=== PATIENT | male | born 1945 | race Caucasian/White ===

== ENCOUNTER 2022-06-10 11:17 | Inpatient (IN) | payer MEDICARE, OTHER, SELFPAY ==
[2022-06-10] VITALS (14 sets, daily range): BP systolic 105–143; BP diastolic 62–100; PULSE 70–150; RESP 16–18; TEMP 37; O2SAT 96–100; BMI 24.4
--- NOTE | ~2022-06-10 | US_ITS ---
EXAMINATION: US THYROID CLINICAL INFORMATION: thyrotoxicosis COMPARISON: None TECHNIQUE: Linear transducer grayscale and color Doppler examination with attention to the region of the thyroid. Examination is slightly limited due to positioning within the neck. FINDINGS: SIZE: Measurements of the thyroid lobes and nodules are given in sagittal, anteroposterior and transverse dimensions respectively. Right Thyroid Lobe: 4.3 x 1.8 x 1.2 cm, volume 4.9 mL. Parenchyma: The gland echotexture is heterogeneous. Thyroid vascularity is normal. Left Thyroid Lobe: 3.3 x 1.7 x 1.2 cm, volume 3.4 mL. Parenchyma: The gland echotexture is heterogeneous. Thyroid vascularity is normal. Isthmus: 0.2 cm in maximum AP dimension. Estimated total number of nodules greater than or equal to 1 cm: 1. [employer] Data [employer] nodules are described as follows: 1. Location: Right thyroid lobe interpolar region. Size: 1.6 x 1.5 x 1.2 cm, volume 1.5 mL. Nodule characteristics: Composition: Solid (2). Echogenicity: Isoechoic (1). Shape: Not taller than wide (0). Margins: Ill-defined (0). Echogenic Foci: None (0). ACR TI-RADS total points: 3 ACR TI-RADS category: 3 NODES: No lymphadenopathy is seen in the tissue surrounding the thyroid gland. US/US thyroid IMPRESSION: Normal-sized thyroid gland with slight parenchymal heterogenicity and normal vascularity. Single solid TI-RADS category 3 nodule in the right thyroid lobe. A follow-up ultrasound is advised per below. ACR TI-RADS RECOMMENDATION REFERENCE: Ultrasound-guided fine-needle aspiration, followup ultrasound, no further follow up. * TR1 (0 point) and TR 2 (2 points): No FNA or follow up * TR3 (3 points): FNA if more than or equal to 2.5 cm in maximum dimension, followup ultrasound in 1, 3 and 5 years if 1.5 to 2.4 cm in maximum dimension. * TR4 (4-6 points): FNA if more than or equal to 1.5 cm in maximum dimension, followup ultrasound in 1, 2, 3 and 5 years if 1 to 1.4 cm in maximum dimension. * TR5 (more than or equal to 7 points): FNA if more than or equal to 1 cm in maximum dimension, followup ultrasound every year for 5 years if 0.5 to 0.9 cm in maximum dimension. * TR3, TR4 or TR5 nodules that are below the size threshold for follow up receive no follow up.
--- NOTE | ~2022-06-10 | CT_ITS ---
EXAMINATION: CT HEAD AND CHEST. CLINICAL INFORMATION: Weakness. COMPARISON: None TECHNIQUE: Chest 2 views. 5 mm thin axial and reformatted 2 mm thin sagittal and coronal images of brain were obtained. DLP [id number]. FINDINGS: Chest: The lungs are hyperinflated but clear. There is a 9 mm nodule in the lingula and round nodule measuring 9 mm left upper lobe laterally overlying sixth posterior rib and left anterior fourth rib. The heart size and pulmonary vascularity is normal. No gross bony abnormality seen. Brain: There is no acute intra-axial, extra-axial bleed, masses or midline shift. There is no acute infarction evolution. There is no edema. There is diffuse periventricular hypodensity in both cerebral hemispheres without mass effect. The lateral ventricles are symmetrical but moderately enlarged. There is mild prominence of cortical sulci. No abnormality seen in the posterior fossa. Mild atherosclerotic changes of bilateral vertebral arteries are noted. Bone windows reveal normal aeration of bilateral parahilar nasal sinuses and mastoid air cells. No calvarial abnormality seen. No scalp soft tissue abnormality seen CT/CT head/brain wo con IMPRESSION: Hyperinflated lungs without acute process. Suspect 2 pulmonary nodules in the left hemithorax. Recommend CT chest correlation. No acute intracranial process seen. Age-related cerebral volume loss with chronic small vessel ischemic changes
--- NOTE | 2022-06-10 11:30 | ED.GENADULT ---
HPI - General Adult General Chief complaint: Weakness Stated complaint: weak/tired x's 1 week Time Seen by Provider: 06/10/22 11:29 Source: patient and EMS Mode of arrival: EMS Limitations: no limitations History of Present Illness HPI narrative: Patient is a 77 year old male presenting to the emergency department today feeling weak. Patient states that starting 3 weeks ago, he has had intermittent weakness. Patient states that he does not have a history of any cardiac problems and is not on any blood thinners. Patient denies any dizziness, lightheadedness, abdominal pain, nausea, vomiting, fever, chills, blurry vision, double vision, loss of vision, chest pain, difficulty breathing, shortness of breath, back pain, night sweats, pain with urination, increased urinary frequency, increased urinary urgency, blood in his urine or stool, syncope or a near syncopal episode, recent trauma or falls, bowel incontinence, bladder incontinence, bowel retention, bladder retention, or any other complaints at this time. Onset (ago): week(s) (3) Severity: mild Severity scale (1-10): 4 Relieving factors: none Exacerbating factors: none Associated symptoms: denies other symptoms Treatments prior to arrival: none Related Data Home Medications Medication Instructions Recorded Confirmed albuterol sulfate 90 mcg/actuation 2 puff PO QID PRN Wheezing 06/10/22 06/10/22 aerosol inhaler cholecalciferol (vitamin D3) 25 1 tab PO DAILY 06/10/22 06/10/22 mcg (1,000 unit) tablet fluticasone propionate 220 1 puff PO BID 06/10/22 06/10/22 mcg/actuation HFA aerosol inhaler (Flovent HFA) naproxen 500 mg tablet 1 tab PO BID PRN pain 06/10/22 06/10/22 omeprazole 20 mg capsule,delayed 1 cap PO BID 06/10/22 06/10/22 release tamsulosin 0.4 mg capsule 1 cap PO DAILY 06/10/22 06/10/22 tramadol 50 mg tablet 2 tab PO TID 06/10/22 06/10/22 Allergies Allergy/AdvReac Type Severity Reaction Status Date / Time No Known Allergies Allergy Verified 06/10/22 11:36 Review of Systems Constitutional: Constitutional: Reports no additional constitutional complaints, Denies chills, Denies fever(s), Denies night sweats and Reports weakness Eyes: Eyes: Reports no additional eye complaints, Denies blurry vision, Denies change in vision, Denies diplopia, Denies eye discharge, Denies loss of vision and Denies eye pain ENT: Denies dizziness Cardiovascular: Cardiovascular: Reports no additional cardiovascular complaints, Denies chest pain, Denies lightheadedness, Denies Loss of Consciousness and Denies dyspnea Respiratory: Respiratory: Reports no additional respiratory complaints and Denies dyspnea Gastrointestinal: Gastrointestinal: Reports no additional gastrointestinal complaints, Denies abdominal pain, Denies melena, Denies hematochezia, Denies change in bowel habits and Denies change in stool character Genitourinary: Genitourinary: Reports no additional male genitourinary complaints, Denies hematuria, Denies oliguria, Denies difficulty urinating, Denies dysuria, Denies urinary frequency, Denies urinary hesitancy, Denies urinary incontinence and Denies urinary urgency Musculoskeletal: Musculoskeletal: Reports no additional musculoskeletal complaints, Denies numbness and Denies tingling Neurologic: Denies dizziness, Denies loss of vision, Denies numbness, Denies tingling and Reports weakness Psychiatric: Psychiatric: Reports no additional psychiatric complaints Endocrine: Endocrine: Reports no additional endocrine complaints Hematologic/Lymphatic: Hematologic/Lymphatic: Reports no additional hematologic/lymphatic complaints Allergic/Immunologic: Allergic/Immunologic: Reports no additional allergic/immunologic complaints [facility] Past Medical History Attestation statement: The following information was validated with the patient. Source: old records reviewed Medical History COPD (chronic obstructive pulmonary disease) GERD (gastroesophageal reflux disease) Social History Social History Patient Tobacco Use Status: Former Tobacco user Use of substances other than those prescribed or required for medical reasons: Yes Substance Use Type: Marijuana Advance Directives: No Advance Directives Information Provided: Yes Physical Exam ED Vital Signs: Vital Signs - 24 hr 06/10/22 11:34 06/10/22 11:45 06/10/22 11:55 Temperature 98.6 F Pulse Rate 136 H 150 H 135 H Respiratory Rate 18 18 16 Blood Pressure 127/89 143/100 H 124/83 Pulse Oximetry 97 Oxygen Delivery Method Room Air 06/10/22 12:12 06/10/22 12:16 06/10/22 12:39 Temperature Pulse Rate 139 H 133 H 130 H Respiratory Rate 18 Blood Pressure 140/77 H 105/71 129/92 H Pulse Oximetry Oxygen Delivery Method 06/10/22 13:09 06/10/22 13:19 06/10/22 15:20 Temperature Pulse Rate 140 H 115 H 138 H Respiratory Rate 18 18 Blood Pressure 119/85 120/76 140/78 H Pulse Oximetry 97 97 Oxygen Delivery Method Room Air Room Air 06/10/22 16:04 06/10/22 16:18 06/10/22 16:56 Temperature Pulse Rate 120 H 126 H 110 H Respiratory Rate 18 18 Blood Pressure 108/84 130/72 109/80 Pulse Oximetry 98 97 Oxygen Delivery Method Room Air Room Air BMI result Body Mass Index 24.4 Const General: cooperative, no acute distress, alert and awake Nutritional Appearance: well nourished Orientation/consciousness: patient oriented x3 Limitations: no limitations HENMT Head: Yes normal to inspection and Yes atraumatic Ears: hearing grossly normal bilaterally and external ears normal General nose exam: Normal external nose present, no nasal discharge noted and no epistaxis Face and sinus: Yes normal facial exam, No abrasion and No laceration Mouth: Normal oral and palatal mucosa present, no drooling and no muffled voice Eyes General: appearance normal, both eyes and all related structures Periorbital: periorbital findings normal Eyelids: Yes eyelids normal Conjunctivae: conjunctivae normal Pupils: Equal, round and reactive pupils present EOM: EOMs intact bilaterally Neck Neck: Yes normal visual inspection, Yes full ROM and Yes no lymphadenopathy Chest Chest palpation & inspection: normal inspection of the chest Resp Effort & Inspection: normal respiratory effort and able to speak in complete sentences Auscultation: clear to auscultation bilaterally Cardio Rate: tachycardic Rhythm: abnormal rhythm irregularly irregular GI Inspection: Yes normal to inspection Palpation (GI): Soft to palpation, not firm, nontender and no guarding Neuro General: patient oriented x3 and moves all extremities Cranial nerves: Yes Equal, round and reactive pupils present Cognition (Neuro): normal cognition Motor exam (neuro): 5/5 motor strength present throughout Sensory Exam: Normal double simultaneous stimulation for sensation Coordination: [id number] test normal Extrem General: Yes normal to inspection, Yes full ROM and Yes capillary refill normal Psych Appearance: grossly normal Mental Status: mental status grossly normal Affect: normal affect Attitude: cooperative Thought process: Normal thought process present Thought content: Normal thought content present Insight: Good insight present (Psych) Medical Decision Making MDM Narrative Medical decision making narrative: Patient is a 77 year old male presenting to the emergency department today feeling unwell. Patient's physical exam showed a new onset atrial fibrillation with RVR. Patient's blood work showed a slightly elevated WBC count at 13.4 however, I believe this to be secondary to a stress reaction and not an infectious process. Patient's BNP was 200. Patient's initial troponin was 37.9 and his repeat was 32.2. Patient's urine showed no acute process. Patient's EKG showed atrial fibrillation with RVR. Patient's chest x-ray and head CT showed no acute process. Patient was given multiple doses of PO and IV Lopressor as well as IV Cardizem. Patient's rate was controlled after the Cardizem drip was started. I explained my physical exam findings as well as all test results to the patient. I answered all questions asked by the patient. I called and spoke to Dr. Mendoza who agreed to hospital admission. This patient was not septic and at no point did I have clinical concern of sepsis. Differential Diagnosis Differential Diagnosis: Atrial fibrillation with RVR Medical Records Medical records reviewed: Yes I reviewed the patient's medical records. Lab Data Lab results reviewed: Yes I reviewed the patient's lab results. Result diagrams: 06/10/22 11:45 06/10/22 11:45 Labs: Lab Results 06/10/22 06/10/22 06/10/22 Range/Units 11:45 11:45 11:45 WBC 13.4 H (4.8-10.8) X10*3/uL RBC 5.19 (4.60-5.80) X10*6/uL Hgb 15.2 (14.0-18.0) g/dl Hct 44.1 (42.0-52.0) % MCV 85.0 (80.0-98.0) fL MCH 29.3 (27.0-33.0) pg MCHC 34.5 (31.0-36.0) g/dl RDW 13.4 (11.0-16.0) % Plt Count 430 H (160-400) X10*3/uL MPV 10.8 (9.4-12.4) fL Immature Gran % (Auto) 0.6 H (0.0-0.4) % Neut % (Auto) 84.1 H (45-73) % Lymph % (Auto) 8.6 L (20-40) % [place] % (Auto) 6.4 (2-11) % Eos % (Auto) 0.1 (0-4) % Baso % (Auto) 0.2 (0-2) % Lymph # (Auto) 1.2 (1.2-4.9) X10*3/uL [place] # (Auto) 0.9 (0.1-1.2) X10*3/uL Eos # (Auto) 0.0 (0.0-0.4) X10*3/uL Baso # (Auto) 0.0 (0.0-0.2) X10*3/uL Abs Immat Gran (auto) 0.08 H (0.00-0.03) X10*3/uL Absolute Neuts (auto) 11.2 H (2.0-8.3) x10*3/uL Absolute Nucleated RBC 0.000 (0.0-0.012) X10*3/uL Nucleated RBC % (auto) 0.0 (0.0-0.2) /100WBC PT (10.0-13.1) SEC INR (0.9-1.1) APTT (26.0-36.4) SEC Sodium 140 (135-145) mmol/L Potassium 4.3 (3.3-5.1) mmol/L Chloride 101 (96-108) mmol/L Carbon Dioxide 23 (22-29) mmol/L Anion Gap 20 (12-20) BUN 33 H (9-16) mg/dL Creatinine 0.97 (0.5-1.4) mg/dL Estim Creat Clear Calc 63.7 Estimated GFR > 60 Random Glucose 156 H (60-115) mg/dL Lactic Acid (0.5-2.0) mmol/L Calcium 10.2 (8.4-10.2) mg/dL Magnesium 1.9 (1.6-2.6) mg/dL Total Bilirubin 1.3 H (0.0-1.0) mg/dL AST 22 (5-37) U/L ALT 29 (0-40) U/L Alkaline Phosphatase 82 (39-117) U/L Troponin I High Sens 37.9 H (<3.5-35.0) ng/L B-Natriuretic Peptide (<100) pg/mL Total Protein 7.3 (6.5-8.0) g/dL Albumin 4.2 (3.5-5.0) g/dL TSH < 0.01 L (0.32-4.0) uIU/mL Urine Color Urine Appearance Urine pH (5.0-8.0) Ur Specific [place] (1.005-1.025) Urine Protein (NEG-TRACE) MG/DL Urine Glucose (UA) (NEG) MG/DL Urine Ketones (NEG) MG/DL Urine Blood (NEG) Urine Nitrite (NEG) Ur Leukocyte Esterase (NEG) Urine RBC (0) /HPF Urine WBC (0-4) /HPF Ur Squamous Epith Cells /LPF Urine Bacteria /LPF COVID-19 ([facility]) (Negative) COVID-19 Clin Com Influenza Type A ([facility]) (Negative) Influenza Type B ([facility]) (Negative) Influenza A & B Note 06/10/22 06/10/22 06/10/22 Range/Units 11:46 11:46 12:01 WBC (4.8-10.8) X10*3/uL RBC (4.60-5.80) X10*6/uL Hgb (14.0-18.0) g/dl Hct (42.0-52.0) % MCV (80.0-98.0) fL MCH (27.0-33.0) pg MCHC (31.0-36.0) g/dl RDW (11.0-16.0) % Plt Count (160-400) X10*3/uL MPV (9.4-12.4) fL Immature Gran % (Auto) (0.0-0.4) % Neut % (Auto) (45-73) % Lymph % (Auto) (20-40) % [place] % (Auto) (2-11) % Eos % (Auto) (0-4) % Baso % (Auto) (0-2) % Lymph # (Auto) (1.2-4.9) X10*3/uL [place] # (Auto) (0.1-1.2) X10*3/uL Eos # (Auto) (0.0-0.4) X10*3/uL Baso # (Auto) (0.0-0.2) X10*3/uL Abs Immat Gran (auto) (0.00-0.03) X10*3/uL Absolute Neuts (auto) (2.0-8.3) x10*3/uL Absolute Nucleated RBC (0.0-0.012) X10*3/uL Nucleated RBC % (auto) (0.0-0.2) /100WBC PT (10.0-13.1) SEC INR (0.9-1.1) APTT (26.0-36.4) SEC Sodium (135-145) mmol/L Potassium (3.3-5.1) mmol/L Chloride (96-108) mmol/L Carbon Dioxide (22-29) mmol/L Anion Gap (12-20) BUN (9-16) mg/dL Creatinine (0.5-1.4) mg/dL Estim Creat Clear Calc Estimated GFR Random Glucose (60-115) mg/dL Lactic Acid 1.9 (0.5-2.0) mmol/L Calcium (8.4-10.2) mg/dL Magnesium (1.6-2.6) mg/dL Total Bilirubin (0.0-1.0) mg/dL AST (5-37) U/L ALT (0-40) U/L Alkaline Phosphatase (39-117) U/L Troponin I High Sens (<3.5-35.0) ng/L B-Natriuretic Peptide (<100) pg/mL Total Protein (6.5-8.0) g/dL Albumin (3.5-5.0) g/dL TSH (0.32-4.0) uIU/mL Urine Color Urine Appearance Urine pH (5.0-8.0) Ur Specific [place] (1.005-1.025) Urine Protein (NEG-TRACE) MG/DL Urine Glucose (UA) (NEG) MG/DL Urine Ketones (NEG) MG/DL Urine Blood (NEG) Urine Nitrite (NEG) Ur Leukocyte Esterase (NEG) Urine RBC (0) /HPF Urine WBC (0-4) /HPF Ur Squamous Epith Cells /LPF Urine Bacteria /LPF COVID-19 ([facility]) Negative (Negative) COVID-19 Clin Com See Note Influenza Type A ([facility]) Negative (Negative) Influenza Type B ([facility]) Negative (Negative) Influenza A & B Note See Note 06/10/22 06/10/22 06/10/22 Range/Units 12:01 12:10 14:00 WBC (4.8-10.8) X10*3/uL RBC (4.60-5.80) X10*6/uL Hgb (14.0-18.0) g/dl Hct (42.0-52.0) % MCV (80.0-98.0) fL MCH (27.0-33.0) pg MCHC (31.0-36.0) g/dl RDW (11.0-16.0) % Plt Count (160-400) X10*3/uL MPV (9.4-12.4) fL Immature Gran % (Auto) (0.0-0.4) % Neut % (Auto) (45-73) % Lymph % (Auto) (20-40) % [place] % (Auto) (2-11) % Eos % (Auto) (0-4) % Baso % (Auto) (0-2) % Lymph # (Auto) (1.2-4.9) X10*3/uL [place] # (Auto) (0.1-1.2) X10*3/uL Eos # (Auto) (0.0-0.4) X10*3/uL Baso # (Auto) (0.0-0.2) X10*3/uL Abs Immat Gran (auto) (0.00-0.03) X10*3/uL Absolute Neuts (auto) (2.0-8.3) x10*3/uL Absolute Nucleated RBC (0.0-0.012) X10*3/uL Nucleated RBC % (auto) (0.0-0.2) /100WBC PT 16.2 H (10.0-13.1) SEC INR 1.4 H (0.9-1.1) APTT 25.2 L (26.0-36.4) SEC Sodium (135-145) mmol/L Potassium (3.3-5.1) mmol/L Chloride (96-108) mmol/L Carbon Dioxide (22-29) mmol/L Anion Gap (12-20) BUN (9-16) mg/dL Creatinine (0.5-1.4) mg/dL Estim Creat Clear Calc Estimated GFR Random Glucose (60-115) mg/dL Lactic Acid (0.5-2.0) mmol/L Calcium (8.4-10.2) mg/dL Magnesium (1.6-2.6) mg/dL Total Bilirubin (0.0-1.0) mg/dL AST (5-37) U/L ALT (0-40) U/L Alkaline Phosphatase (39-117) U/L Troponin I High Sens 32.2 (<3.5-35.0) ng/L B-Natriuretic Peptide 200 H (<100) pg/mL Total Protein (6.5-8.0) g/dL Albumin (3.5-5.0) g/dL TSH (0.32-4.0) uIU/mL Urine Color Urine Appearance Urine pH (5.0-8.0) Ur Specific [place] (1.005-1.025) Urine Protein (NEG-TRACE) MG/DL Urine Glucose (UA) (NEG) MG/DL Urine Ketones (NEG) MG/DL Urine Blood (NEG) Urine Nitrite (NEG) Ur Leukocyte Esterase (NEG) Urine RBC (0) /HPF Urine WBC (0-4) /HPF Ur Squamous Epith Cells /LPF Urine Bacteria /LPF COVID-19 ([facility]) (Negative) COVID-19 Clin Com Influenza Type A ([facility]) (Negative) Influenza Type B ([facility]) (Negative) Influenza A & B Note 06/10/22 Range/Units 15:05 WBC (4.8-10.8) X10*3/uL RBC (4.60-5.80) X10*6/uL Hgb (14.0-18.0) g/dl Hct (42.0-52.0) % MCV (80.0-98.0) fL MCH (27.0-33.0) pg MCHC (31.0-36.0) g/dl RDW (11.0-16.0) % Plt Count (160-400) X10*3/uL MPV (9.4-12.4) fL Immature Gran % (Auto) (0.0-0.4) % Neut % (Auto) (45-73) % Lymph % (Auto) (20-40) % [place] % (Auto) (2-11) % Eos % (Auto) (0-4) % Baso % (Auto) (0-2) % Lymph # (Auto) (1.2-4.9) X10*3/uL [place] # (Auto) (0.1-1.2) X10*3/uL Eos # (Auto) (0.0-0.4) X10*3/uL Baso # (Auto) (0.0-0.2) X10*3/uL Abs Immat Gran (auto) (0.00-0.03) X10*3/uL Absolute Neuts (auto) (2.0-8.3) x10*3/uL Absolute Nucleated RBC (0.0-0.012) X10*3/uL Nucleated RBC % (auto) (0.0-0.2) /100WBC PT (10.0-13.1) SEC INR (0.9-1.1) APTT (26.0-36.4) SEC Sodium (135-145) mmol/L Potassium (3.3-5.1) mmol/L Chloride (96-108) mmol/L Carbon Dioxide (22-29) mmol/L Anion Gap (12-20) BUN (9-16) mg/dL Creatinine (0.5-1.4) mg/dL Estim Creat Clear Calc Estimated GFR Random Glucose (60-115) mg/dL Lactic Acid (0.5-2.0) mmol/L Calcium (8.4-10.2) mg/dL Magnesium (1.6-2.6) mg/dL Total Bilirubin (0.0-1.0) mg/dL AST (5-37) U/L ALT (0-40) U/L Alkaline Phosphatase (39-117) U/L Troponin I High Sens (<3.5-35.0) ng/L B-Natriuretic Peptide (<100) pg/mL Total Protein (6.5-8.0) g/dL Albumin (3.5-5.0) g/dL TSH (0.32-4.0) uIU/mL Urine Color YELLOW Urine Appearance CLEAR Urine pH 6.0 (5.0-8.0) Ur Specific [place] >= 1.030 H (1.005-1.025) Urine Protein 1+ H (NEG-TRACE) MG/DL Urine Glucose (UA) NEG (NEG) MG/DL Urine Ketones 40 (NEG) MG/DL Urine Blood NEG (NEG) Urine Nitrite NEG (NEG) Ur Leukocyte Esterase NEG (NEG) Urine RBC 0 (0) /HPF Urine WBC 0 (0-4) /HPF Ur Squamous Epith Cells NONE /LPF Urine Bacteria 1+ /LPF COVID-19 ([facility]) (Negative) COVID-19 Clin Com Influenza Type A ([facility]) (Negative) Influenza Type B ([facility]) (Negative) Influenza A & B Note Imaging Data CT Head and Chest x-ray: Attestation: I personally reviewed and interpreted this imaging study as follows: My impression: No acute process. Radiologist's impression: EXAMINATION: CT HEAD AND CHEST. CLINICAL INFORMATION: Weakness.? COMPARISON: None? TECHNIQUE: Chest 2 views. 5 mm thin axial and reformatted 2 mm thin sagittal and coronal images of brain were obtained. DLP 651.? FINDINGS: Chest: The lungs are hyperinflated but clear. There is a 9 mm nodule in the lingula and round nodule measuring 9 mm left upper lobe laterally overlying sixth posterior rib and left anterior fourth rib. The heart size and pulmonary vascularity is normal. No gross bony abnormality seen. Brain: There is no acute intra-axial, extra-axial bleed, masses or midline shift. There is no acute infarction evolution. There is no edema. There is diffuse periventricular hypodensity in both cerebral hemispheres without mass effect. The lateral ventricles are symmetrical but moderately enlarged. There is mild prominence of cortical sulci. No abnormality seen in the posterior fossa. Mild atherosclerotic changes of bilateral vertebral arteries are noted. Bone windows reveal normal aeration of bilateral parahilar nasal sinuses and mastoid air cells. No calvarial abnormality seen. No scalp soft tissue abnormality seen XR/XR chest 2V IMPRESSION: Hyperinflated lungs without acute process. Suspect 2 pulmonary nodules in the left hemithorax. Recommend CT chest correlation. ? No acute intracranial process seen. ? Age-related cerebral volume loss with chronic small vessel ischemic changes Dictated By: Asif Andre MD Signed By: Electronically signed by Asif Andre MD 06/10/22 1428 ECG Data Attestation: I personally reviewed and interpreted this ECG as follows: Prior ECG tracings: available for review Interpretation: Vent. Rate: 173 BPM ? ? Atrial Rate: 000 BPM P-R Int: 000 ms? QRS Dur: 076 ms QT Int: 246 ms ? ? ? P-R-T Axes: 000 -19 -14 degrees QTc Int: 417 ms ? 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 rate has increased BY? 92 BPM Nonspecific T wave abnormality, worse in Inferior leads DD/ [id number] Critical Care Time Critical Care Time Critical Care Time: Yes Total Critical Care Time: 45 Attestation: I spent 45 minutes of Critical Care Time with this patient. This does not include time spent on separately reported billable procedures. Discharge Plan Discharge Clinical Impression: New onset atrial fibrillation, Atrial fibrillation with RVR Patient Disposition: Admitted As Inpatient
--- NOTE | 2022-06-10 11:34 | ECG_ITS ---
Test Reason : AFIB Blood Pressure : / mmHG Vent. 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 rate has increased BY 92 BPM Nonspecific T wave abnormality, worse in Inferior leads Referred By: Rosie Pritchett Electronically Signed By:SAMARA MEDEIROS
[2022-06-10] MEDS: Metoprolol Tartrate 5 MG/5 ML VIAL IVPUSH ×3 (11:41→12:11)
[2022-06-10 11:52] LABS: MANUAL DIFF FLAG NO
[2022-06-10 11:53] LABS: Basophils Percent Auto 0.2 % (0-2); Eosinophils Percent Auto 0.1 % (0-4); Hematocrit 44.1 % (42.0-52.0); Hemoglobin 15.2 g/dl (14.0-18.0); Imm Gran Abs Auto 0.08 X10*3/uL (0.00-0.03); Imm Gran Pct Auto 0.6 % (0.0-0.4); Lymphocytes Absolute Auto 1.2 X10*3/uL (1.2-4.9); Lymphocytes Percent Auto 8.6 % (20-40); Mean Corpuscular HGB Conc 34.5 g/dl (31.0-36.0); Mean Corpuscular Hemoglobin 29.3 pg (27.0-33.0); Mean Platelet Volume 10.8 fL (9.4-12.4); Monocytes Absolute Auto 0.9 X10*3/uL (0.1-1.2); Monocytes Percent Auto 6.4 % (2-11); Neutrophils Absolute Auto 11.2 x10*3/uL (2.0-8.3); Neutrophils Percent Auto 84.1 % (45-73); Platelet Count 430 X10*3/uL (160-400); Red Blood Count 5.19 X10*6/uL (4.60-5.80); Red Cell Distribution Width 13.4 % (11.0-16.0); White Blood Count 13.4 X10*3/uL (4.8-10.8)
[2022-06-10 12:08] LABS: Alanine Aminotransferase 29 U/L (0-40); Albumin Level 4.2 g/dL (3.5-5.0); Alkaline Phosphatase 82 U/L (39-117); Anion Gap 20 (12-20); Aspartate Amino Transferase 22 U/L (5-37); Bilirubin Total 1.3 mg/dL (0.0-1.0); Blood Urea Nitrogen 33 mg/dL (9-16); Calcium 10.2 mg/dL (8.4-10.2); Carbon Dioxide 23 mmol/L (22-29); Chloride 101 mmol/L (96-108); Creatinine Clr Calc Pharmacy 63.7; Estimated Glomerular Filt Rate > 60; Glucose Random 156 mg/dL (60-115); Magnesium 1.9 mg/dL (1.6-2.6); Potassium 4.3 mmol/L (3.3-5.1); Sodium 140 mmol/L (135-145); Total Protein 7.3 g/dL (6.5-8.0)
[2022-06-10 12:12] LABS: Troponin-I High Sensitivity 37.9 ng/L (<3.5-35.0)
[2022-06-10 12:15] LABS: COVID-19 Test Negative (Negative); IDNOW Serial# 16C4AD1C; Influenza A Negative (Negative); Influenza B2 Negative (Negative)
[2022-06-10 12:16] LABS: Lactic Acid 1.9 mmol/L (0.5-2.0)
[2022-06-10] MEDS: Metoprolol Tartrate 12.5 MG HALFTAB PO ×2 (12:21→15:01)
[2022-06-10 12:22] LABS: INTERNATIONAL NORM RATIO 1.4 (0.9-1.1); Prothrombin Time 16.2 SEC (10.0-13.1)
[2022-06-10 12:25] LABS: Partial Thromboplastin Time 25.2 SEC (26.0-36.4)
[2022-06-10 12:27] LABS: B Type Natriuretic Peptide 200 pg/mL (<100)
[2022-06-10] MEDS: dilTIAZem HCL 50 MG/10 ML VIAL 10 MG IVPUSH (13:08)
--- NOTE | 2022-06-10 13:14 | PC.NURSE ---
Pt presented to ED with reports of general weakness x 2-3 weeks intermittently. Placed on monitor on arrival and HR noted to be irregular and 190s. Rosie JONES and Dr Mederos to bedside. EKG obtained and Metoprolol given as charted in [facility]. Pt trended down to 140s, BP remains stable. Cardizem now given in effort to control HR. Pt denies other associated sx. Reports chronic low back pain.
[2022-06-10 14:28] LABS: Troponin-I High Sensitivity 32.2 ng/L (<3.5-35.0)
--- NOTE | 2022-06-10 14:46 | PC.NURSE ---
ASSISTED PT TO USE URINAL AT BEDSIDE. HR ELEVATED TO LOW 150'S UPON STANDING AND GETTING BACK INTO BED. PROVIDER MADE AWARE.
[2022-06-10] MEDS: Furosemide 20 MG/2 ML VIAL IVPUSH (15:05)
[2022-06-10] MEDS: dilTIAZem HCL 125 MG in 0.9 % Sodium Chloride 100 ML 10 MG IVCONT (15:12)
[2022-06-10 15:13] LABS: Appearance Urine CLEAR; Color Urine YELLOW; Glucose Urine UA NEG (NEG); Leukocyte Esterase Urine NEG (NEG); Nitrite Urine NEG (NEG); Specific Gravity - Urine >= 1.030 (1.005-1.025); UACC Culture Trigger NO; Urine Blood NEG (NEG); Urine Ketones 40 MG/DL (NEG); Urine Protein 1+ MG/DL (NEG-TRACE)
--- NOTE | 2022-06-10 15:20 | PC.NURSE ---
Cardizem gtt started at 10mg/hr per order. HR 130-150, 150 with activity. Pt needs frequent reminders
[2022-06-10] MEDS: 0.9 % Sodium Chloride 500 ML 150 ML IVCONT (15:22)
[2022-06-10 15:24] LABS: Bacteria Urine 1+ /LPF; RBC Urine 0 /HPF (0); WBC Urine 0 /HPF (0-4)
--- NOTE | 2022-06-10 15:30 | PC.NURSE ---
Lasix given, external cath placed as pt states he is unable to void in bed, HR increases with any activity.
--- NOTE | 2022-06-10 17:08 | PHA.MEDREC ---
Pharmacy Consult ? Medication Reconciliation Pharmacy has completed the medication reconciliation. Pt poor historian, agreeable to list I got from recent claim history. Did state he doesn't know the last time he took his meds but it's been a while.
--- NOTE | 2022-06-10 17:31 | P.HPHOSP_ITS ---
History of Present Illness Date of Service: 06/10/22 Chief Complaint: Weakness A 77 years old male with PMH of back pain, BPH, GERD, COPD who presents to the hospital complaining of weakness for the last week or so. The patient reported that he has not been feeling his self for the last week or longer as he became more tired and having no energy. He was able to take care of his basic needs with for the last 2 days his weakness became too much as he was unable to leave his bed that often. He was brought to the emergency by his daughter. Denies any fever, chills, headache, double vision, chest pain, palpi tation, abdominal pain, nausea, vomiting, change in bowel habit or urinary symptoms. In the emergency he was found to have new onset atrial fibrillation with rapid ventricular response. Started on IV Cardizem drip as metoprolol IV pushes did not help controlling the heart rate. Will be admitted for further evaluation and treatment. Review of Systems Review of Systems: No fever, chills but has generalized weakness No chest pain, reports feeling his heart racing now No shortness of breath or coughing No abdominal pain, nausea or vomiting No urinary symptoms No any rash or wounds PMFSH Medical History COPD (chronic obstructive pulmonary disease) GERD (gastroesophageal reflux disease) Social History Patient Tobacco Use Status: Former Tobacco user Use of substances other than those prescribed or required for medical reasons: Yes Substance Use Type: Marijuana Advance Directives: No Advance Directives Information Provided: Yes Meds Allergies Allergy/AdvReac Type Severity Reaction Status Date / Time No Known Allergies Allergy Verified 06/10/22 11:36 Active Medications: Current Medications Diltiazem HCl 125 mg/ Sodium (Chloride) 125 mls @ 0 mls/hr IVCONT .Q0M ANGELA; Protocol Last Titration: 06/10/22 16:17 Dose: 15 mg/hr, 15 mls/hr Pharmacy Consult (Consult Rx Perform Med Rec) 1 each MISCELLANE ONCE PRN PRN Reason: Consult order Home Medications Medication Instructions Recorded Confirmed Last Taken Type albuterol sulfate 90 mcg/actuation 2 puff PO QID PRN Wheezing 06/10/22 06/10/22 Unknown History aerosol inhaler cholecalciferol (vitamin D3) 25 1 tab PO DAILY 06/10/22 06/10/22 Unknown History mcg (1,000 unit) tablet fluticasone propionate 220 1 puff PO BID 06/10/22 06/10/22 Unknown History mcg/actuation HFA aerosol inhaler (Flovent HFA) naproxen 500 mg tablet 1 tab PO BID PRN pain 06/10/22 06/10/22 Unknown History omeprazole 20 mg capsule,delayed 1 cap PO BID 06/10/22 06/10/22 Unknown History release tamsulosin 0.4 mg capsule 1 cap PO DAILY 06/10/22 06/10/22 Unknown History tramadol 50 mg tablet 2 tab PO TID 06/10/22 06/10/22 Unknown History Physical Exam Vital Signs and Narrative: Vital Signs: Last Vital Signs Temp 98.6 F 06/10/22 11:34 Pulse 110 H 06/10/22 16:56 Resp 18 06/10/22 16:18 BP 109/80 06/10/22 16:56 Pulse Ox 97 06/10/22 16:18 O2 Del Method 06/10/22 16:18 BMI result Body Mass Index 24.4 Const: Other: Constitutional : Alert, oriented, not in distress Neck : Normal inspection, Supple Cardiovascular : Irregular irregular, no JVP, no lower extremity edema, t achycardia Respiratory : fair bilateral air entry, no crackles, wheezes or rhonchi Gastrointestinal: soft, lax, Normal bowel sounds, Non tender Skin : Warm, Dry Neurological : Alert & oriented x3, No focal deficit , CN 2-12 within normal Results Labs CBC and Chem 7: 06/10/22 11:45 06/10/22 11:45 Labs: Laboratory Results - last 24 hr 06/10/22 06/10/22 06/10/22 11:45 11:45 11:46 MCV 85.0 MCH 29.3 MCHC 34.5 RDW 13.4 Plt Count 430 H MPV 10.8 Immature Gran % (Auto) 0.6 H Neut % (Auto) 84.1 H Lymph % (Auto) 8.6 L [place] % (Auto) 6.4 Eos % (Auto) 0.1 Baso % (Auto) 0.2 Lymph # (Auto) 1.2 [place] # (Auto) 0.9 Eos # (Auto) 0.0 Baso # (Auto) 0.0 Abs Immat Gran (auto) 0.08 H Absolute Neuts (auto) 11.2 H Absolute Nucleated RBC 0.000 Nucleated RBC % (auto) 0.0 PT INR APTT Anion Gap 20 Estim Creat Clear Calc 63.7 Estimated GFR > 60 Random Glucose 156 H Lactic Acid Calcium 10.2 Magnesium 1.9 Total Bilirubin 1.3 H AST 22 ALT 29 Alkaline Phosphatase 82 B-Natriuretic Peptide Total Protein 7.3 Albumin 4.2 Urine Color Urine Appearance Urine pH Ur Specific [place] Urine Protein Urine Glucose (UA) Urine Ketones Urine Blood Urine Nitrite Ur Leukocyte Esterase Urine RBC Urine WBC Ur Squamous Epith Cells Urine Bacteria COVID-19 ([facility]) COVID-19 Clin Com Influenza Type A ([facility]) Negative Influenza Type B ([facility]KY) Negative Influenza A & B Note See Note 06/10/22 06/10/22 06/10/22 11:46 12:01 12:01 MCV MCH MCHC RDW Plt Count MPV Immature Gran % (Auto) Neut % (Auto) Lymph % (Auto) [place] % (Auto) Eos % (Auto) Baso % (Auto) Lymph # (Auto) [place] # (Auto) Eos # (Auto) Baso # (Auto) Abs Immat Gran (auto) Absolute Neuts (auto) Absolute Nucleated RBC Nucleated RBC % (auto) PT INR APTT Anion Gap Estim Creat Clear Calc Estimated GFR Random Glucose Lactic Acid 1.9 Calcium Magnesium Total Bilirubin AST ALT Alkaline Phosphatase B-Natriuretic Peptide 200 H Total Protein Albumin Urine Color Urine Appearance Urine pH Ur Specific [place] Urine Protein Urine Glucose (UA) Urine Ketones Urine Blood Urine Nitrite Ur Leukocyte Esterase Urine RBC Urine WBC Ur Squamous Epith Cells Urine Bacteria COVID-19 ([facility]) Negative COVID-19 Clin Com See Note Influenza Type A ([facility]) Influenza Type B ([facility]) Influenza A & B Note 06/10/22 06/10/22 12:10 15:05 MCV MCH MCHC RDW Plt Count MPV Immature Gran % (Auto) Neut % (Auto) Lymph % (Auto) [place] % (Auto) Eos % (Auto) Baso % (Auto) Lymph # (Auto) [place] # (Auto) Eos # (Auto) Baso # (Auto) Abs Immat Gran (auto) Absolute Neuts (auto) Absolute Nucleated RBC Nucleated RBC % (auto) PT 16.2 H INR 1.4 H APTT 25.2 L Anion Gap Estim Creat Clear Calc Estimated GFR Random Glucose Lactic Acid Calcium Magnesium Total Bilirubin AST ALT Alkaline Phosphatase B-Natriuretic Peptide Total Protein Albumin Urine Color YELLOW Urine Appearance CLEAR Urine pH 6.0 Ur Specific [place] >= 1.030 H Urine Protein 1+ H Urine Glucose (UA) NEG Urine Ketones 40 Urine Blood NEG Urine Nitrite NEG Ur Leukocyte Esterase NEG Urine RBC 0 Urine WBC 0 Ur Squamous Epith Cells NONE Urine Bacteria 1+ COVID-19 ([facility]) COVID-19 Clin Com Influenza Type A ([facility]) Influenza Type B ([facility]) Influenza A & B Note Imaging Radiologist's Impressions: Impressions Chest X-Ray 06/10/22 13:55 IMPRESSION: Hyperinflated lungs without acute process. Suspect 2 pulmonary nodules in the left hemithorax. Recommend CT chest correlation. No acute intracranial process seen. Age-related cerebral volume loss with chronic small vessel ischemic changes Head CT 06/10/22 14:02 IMPRESSION: Hyperinflated lungs without acute process. Suspect 2 pulmonary nodules in the left hemithorax. Recommend CT chest correlation. No acute intracranial process seen. Age-related cerebral volume loss with chronic small vessel ischemic changes Assessment and Plan (1) New onset atrial fibrillation: Status: Acute (2) Lung nodule: Status: Acute Plan A 77 years old male with PMH of back pain, BPH, GERD, COPD who presents to the hospital complaining of weakness for the last week or so. New muscle atrial fibrillation with RVR Noticed on EKG Continue Cardizem drip Get cardiology evaluation To do an echo Eliquis as blood thinner, discussed possible side effects and benefits with the patient and he understood Keep on telemetry Elevated BNP to 200, no clear evidence of heart failure at this point, to monitor To give IV magnesium to keep mg level above 2 Lung nodule Two nodules Noticed on CXR to be followed as outpatient with CT scan GERD next Lyme continue omeprazole BPH Tamsulosin DVT PPX Eliquis The patient will likely need 2. Overnight hospital stay for evaluation and treatment of a new onset AFib with RVR to prevent possible decompensation into heart failure. Quality Stroke Does the patient have a stroke diagnosis?: No VTE Prior VTE?: No VTE Risk Level:: Medical - moderate - high VTE Device Contraindication: Treatment Not Indicated VTE Drug Contraindication: N/A - Med Ordered
--- NOTE | 2022-06-10 17:45 | PC.NURSE ---
NS dscontinued Daughter Sandrita [phone] called and updated on plan for admission. Spoke about home services set for pt on d/c from hospital. Pt needs reminds, confused at times and needs reorientation to surroundings. Cardizem remains at 15mg/hr, HR 110s. External cath replaced, dark yellow urine in drainage bag noted.
[2022-06-10 18:08] LABS: Thyroid Stimulating Hormone < 0.01 uIU/mL (0.32-4.0)
--- NOTE | 2022-06-10 18:15 | PC.NURSE ---
Both IVs pulled out and external cath by pt. New IV start to left forearm 18g.
[2022-06-10] MEDS: Magnesium Sulfate/D5W 1 GM/100 ML PIGGYBACK IV (18:16)
[2022-06-10] MEDS: Apixaban 5 MG TABLET PO (20:01)
[2022-06-10] MEDS: traMADoL HCL 50 MG TABLET 100 MG PO (20:01)
[2022-06-10] MEDS: Omeprazole 20 MG CAPSULE.DR PO (20:01)
[2022-06-10] MEDS: ondansetron HCL 4 MG/2 ML VIAL IVPUSH (20:01)
[2022-06-11] VITALS (12 sets, daily range): BP systolic 103–132; BP diastolic 54–85; PULSE 81–122; RESP 16–20; TEMP 36.4–36.9; O2SAT 90–98
[2022-06-11] MEDS: dilTIAZem HCL 125 MG in 0.9 % Sodium Chloride 100 ML 15 MG IVCONT
[2022-06-11 07:04] LABS: Hematocrit 42.1 % (42.0-52.0); Hemoglobin 14.6 g/dl (14.0-18.0); Mean Corpuscular HGB Conc 34.7 g/dl (31.0-36.0); Mean Corpuscular Hemoglobin 29.9 pg (27.0-33.0); Mean Corpuscular Volume 86.1 fL (80.0-98.0); Mean Platelet Volume 11.6 fL (9.4-12.4); Platelet Count 377 X10*3/uL (160-400); Red Blood Count 4.89 X10*6/uL (4.60-5.80); Red Cell Distribution Width 13.7 % (11.0-16.0); White Blood Count 14.8 X10*3/uL (4.8-10.8)
[2022-06-11 07:19] LABS: Anion Gap 18 (12-20); Blood Urea Nitrogen 39 mg/dL (9-16); Calcium 9.7 mg/dL (8.4-10.2); Carbon Dioxide 25 mmol/L (22-29); Chloride 99 mmol/L (96-108); Creatinine Clr Calc Pharmacy 67.2; Estimated Glomerular Filt Rate > 60; Glucose Random 126 mg/dL (60-115); Potassium 4.1 mmol/L (3.3-5.1); Sodium 138 mmol/L (135-145)
[2022-06-11] MEDS: Omeprazole 20 MG CAPSULE.DR PO ×2 (09:12→19:35)
[2022-06-11] MEDS: Metoprolol Tartrate 5 MG/5 ML VIAL 10 MG IVPUSH (09:12)
[2022-06-11] MEDS: traMADoL HCL 50 MG TABLET 100 MG PO ×3 (09:12→19:40)
[2022-06-11] MEDS: Tamsulosin HCL 0.4 MG CAPSULE PO (09:13)
[2022-06-11] MEDS: Metoprolol Tartrate 25 MG TABLET PO ×2 (09:13→13:48)
[2022-06-11] MEDS: Cholecalciferol (Vitamin D3) 25 MCG TABLET PO (09:13)
[2022-06-11] MEDS: Apixaban 5 MG TABLET PO (09:14)
[2022-06-11] MEDS: 0.9 % Sodium Chloride Flush 3 ML SYRINGE IVFLUSH ×3 (09:14→19:37)
[2022-06-11 09:29] LABS: Free T4 (Free Thyroxine) 2.97 ng/dL (0.71-1.85)
--- NOTE | 2022-06-11 10:13 | P.CONCA_ITS ---
History of Present Illness History of Present Illness Date of Service: 06/11/22 Chief complaint: weakness Narrative: This is a cardiology consultation regarding atrial fibrillation with rapid rate. Be comorbidities listed include back pain, BPH, GERD and COPD. Over the last week, generally not feeling well with tiredness and lack of energy. Apparently became so weak that he could not even leave his bed. Then brought to the ER for evaluation and found to have atrial fibrillation with rapid rate. Upon further questioning, patient states that he was not feeling well about 3 weeks ago and thought he had a flu. Various complaints including respiratory as well as nausea vomiting but does seem to be resolved now. Main symptom at this time is constitutional and just not feeling good. He is not feeling any chest pain or shortness of breath or palpitations or in fact anything specifically from cardiac. He is not aware of atrial fibrillation at all. During evaluation also found to be having an overactive thyroid. Is a new diagnosis. Review of Systems Review of Systems: Yes all other systems are reviewed and are negative Constitutional: Constitutional: Reports as per HPI, Reports fatigue, Reports lethargy, Reports malaise and Reports poor appetite Eyes: Eyes: Reports as per HPI ENT: Reports as per HPI Cardiovascular: Cardiovascular: Reports as per HPI, Denies acrocyanosis, Denies cool extremities, Denies chest pain, Denies leg edema, Denies lightheadedness, Denies palpitations and Denies dyspnea Respiratory: Respiratory: Reports as per HPI, Reports no additional respiratory complaints and Denies dyspnea Gastrointestinal: Gastrointestinal: Reports as per HPI and Reports no additional gastrointestinal complaints Genitourinary: Genitourinary: Reports no additional male genitourinary complaints and Reports as per HPI Musculoskeletal: Musculoskeletal: Reports no additional musculoskeletal complaints and Reports as per HPI Integumentary/Breasts: Skin/Breast: Reports system reviewed and no additional complaints, except as docu Neurologic: Reports system reviewed and no additional complaints, except as documented and Reports as per HPI Psychiatric: Psychiatric: Reports no additional psychiatric complaints and Reports as per HPI Endocrine: Endocrine: Reports no additional endocrine complaints, Reports as per HPI, Reports fatigue and Denies palpitations Hematologic/Lymphatic: Hematologic/Lymphatic: Reports no additional he matologic/lymphatic complaints and Reports as per HPI Allergic/Immunologic: Allergic/Immunologic: Reports no additional allergic/immunologic complaints and Reports as per HPI [facility] Past Medical History Medical History COPD (chronic obstructive pulmonary disease) GERD (gastroesophageal reflux disease) Family History Pertinent family history: Patient denies any history of major cardiac issues in the family. He is also denying any cancers or in fact anything else of concern in family. Social History Social History (Updated 06/11/22 @ 10:16 by Martinez Solis MD) Alcohol intake: former Patient Tobacco Use Status: Former Tobacco user Use of substances other than those prescribed or required for medical reasons: Yes Substance Use Type: Marijuana Advance Directives: No Advance Directives Information Provided: Yes Meds Allergies Allergy/AdvReac Type Severity Reaction Status Date / Time No Known Allergies Allergy Verified 06/10/22 11:36 Active Medications: Current Medications Acetaminophen (Acetaminophen 325 Mg Tablet) 650 mg PO Q6H PRN PRN Reason: Pain, Mild (Pain Scale 1-3) Apixaban (Apixaban 5 Mg Tablet) 5 mg PO BID [facility] Last Admin: 06/11/22 09:14 Dose: 5 mg Methimazole (Methimazole 10 Mg Tablet) 30 mg PO DAILY [facility] Metoprolol Tartrate (Metoprolol Tartrate 25 Mg Tablet) 25 mg PO QID [facility]; Protocol Last Admin: 06/11/22 09:13 Dose: 25 mg Omeprazole (Omeprazole 20 Mg Capsule.Dr) 20 mg PO BID [facility] Last Admin: 06/11/22 09:12 Dose: 20 mg Ondansetron HCl (Ondansetron Hcl 4 Mg/2 Ml Vial) 4 mg IVPUSH Q8H PRN PRN Reason: Nausea and Vomiting Last Admin: 06/10/22 20:01 Dose: 4 mg Pharmacy Consult (Consult Rx Perform Med Rec) 1 each MISCELLANE ONCE PRN PRN Reason: Consult order Sodium Chloride (0.9 % Sodium Chloride Flush 3 Ml Syringe) 3 ml IVFLUSH QSHIFT [facility] Last Admin: 06/11/22 09:14 Dose: 3 ml Tamsulosin HCl (Tamsulosin Hcl 0.4 Mg Capsule) 0.4 mg PO DAILY [facility] Last Admin: 06/11/22 09:13 Dose: 0.4 mg Tramadol HCl (Tramadol Hcl 50 Mg Tablet) 100 mg PO TID [facility] Last Admin: 06/11/22 09:12 Dose: 100 mg Vitamin D (Cholecalciferol (Vitamin D3) 25 Mcg Tablet) 25 mcg PO DAILY [facility] Last Admin: 06/11/22 09:13 Dose: 25 mcg Home Medications Medication Instructions Recorded Confirmed Last Taken Type albuterol sulfate 90 mcg/actuation 2 puff PO QID PRN Wheezing 06/10/22 06/10/22 Unknown History aerosol inhaler cholecalciferol (vitamin D3) 25 1 tab PO DAILY 06/10/22 06/10/22 Unknown History mcg (1,000 unit) tablet fluticasone propionate 220 1 puff PO BID 06/10/22 06/10/22 Unknown History mcg/actuation HFA aerosol inhaler (Flovent HFA) naproxen 500 mg tablet 1 tab PO BID PRN pain 06/10/22 06/10/22 Unknown History omeprazole 20 mg capsule,delayed 1 cap PO BID 06/10/22 06/10/22 Unknown History release tamsulosin 0.4 mg capsule 1 cap PO DAILY 06/10/22 06/10/22 Unknown History tramadol 50 mg tablet 2 tab PO TID 06/10/22 06/10/22 Unknown History Physical Exam Vital Signs: Vital Signs: Last Vital Signs Temp 97.6 F 06/11/22 04:55 Pulse 99 06/11/22 10:02 Resp 18 06/11/22 09:25 BP 113/66 06/11/22 10:02 Pulse Ox 96 06/11/22 04:55 O2 Del Method 06/11/22 04:55 BMI result Body Mass Index 24.4 Const: General: comfortable and no acute distress Orientation/consciousness: patient oriented x3 HEENT: Other: Unremarkable Head: Yes normal to inspection Neck: Neck: Yes normal visual inspection Chest: Chest palpation & inspection: normal inspection of the chest Resp: Auscultation: clear to auscultation bilaterally Cardio: Palpation: normal PMI Heart sounds: S1 normal heart sound present, S2 normal heart sound present, no gallops, no murmurs and no rubs GI: Palpation (GI): Soft to palpation Back/Spine/Pelvis: Other: unremarkable Skin: General skin exam: no rashes or lesions noted Neuro: General: patient oriented x3 Extrem: General: Yes normal to inspection Psych: Mental Status: mental status grossly normal Objective Labs and Meds Result diagrams: 06/11/22 06:23 06/11/22 06:23 Lab results: Laboratory Results - last 24 hr 06/10/22 06/10/22 06/10/22 11:45 11:45 11:45 WBC 13.4 H RBC 5.19 Hgb 15.2 Hct 44.1 MCV 85.0 MCH 29.3 MCHC 34.5 RDW 13.4 Plt Count 430 H MPV 10.8 Immature Gran % (Auto) 0.6 H Neut % (Auto) 84.1 H Lymph % (Auto) 8.6 L [place] % (Auto) 6.4 Eos % (Auto) 0.1 Baso % (Auto) 0.2 Lymph # (Auto) 1.2 Cow[place] # (Auto) 0.9 Eos # (Auto) 0.0 Baso # (Auto) 0.0 Abs Immat Gran (auto) 0.08 H Absolute Neuts (auto) 11.2 H Absolute Nucleated RBC 0.000 Nucleated RBC % (auto) 0.0 PT INR APTT Sodium 140 Potassium 4.3 Chloride 101 Carbon Dioxide 23 Anion Gap 20 BUN 33 H Creatinine 0.97 Estim Creat Clear Calc 63.7 Estimated GFR > 60 Random Glucose 156 H Lactic Acid Calcium 10.2 Magnesium 1.9 Total Bilirubin 1.3 H AST 22 ALT 29 Alkaline Phosphatase 82 Troponin I High Sens 37.9 H B-Natriuretic Peptide Total Protein 7.3 Albumin 4.2 TSH < 0.01 L Free T4 Urine Color Urine Appearance Urine pH Ur Specific [place] Urine Protein Urine Glucose (UA) Urine Ketones Urine Blood Urine Nitrite Ur Leukocyte Esterase Urine RBC Urine WBC Ur Squamous Epith Cells Urine Bacteria COVID-19 ([facility]) COVID-19 Clin Com Influenza Type A ([facility]) Influenza Type B ([facility]) Influenza A & B Note 06/10/22 06/10/22 06/10/22 11:46 11:46 12:01 WBC RBC Hgb Hct MCV MCH MCHC RDW Plt Count MPV Immature Gran % (Auto) Neut % (Auto) Lymph % (Auto) Cow[place] % (Auto) Eos % (Auto) Baso % (Auto) Lymph # (Auto) [place] # (Auto) Eos # (Auto) Baso # (Auto) Abs Immat Gran (auto) Absolute Neuts (auto) Absolute Nucleated RBC Nucleated RBC % (auto) PT INR APTT Sodium Potassium Chloride Carbon Dioxide Anion Gap BUN Creatinine Estim Creat Clear Calc Estimated GFR Random Glucose Lactic Acid 1.9 Calcium Magnesium Total Bilirubin AST ALT Alkaline Phosphatase Troponin I High Sens B-Natriuretic Peptide Total Protein Albumin TSH Free T4 Urine Color Urine Appearance Urine pH Ur Specific [place] Urine Protein Urine Glucose (UA) Urine Ketones Urine Blood Urine Nitrite Ur Leukocyte Esterase Urine RBC Urine WBC Ur Squamous Epith Cells Urine Bacteria COVID-19 ([facility]) Negative COVID-19 Clin Com See Note Influenza Type A ([facility]KY) Negative Influenza Type B ([facility]) Negative Influenza A & B Note See Note 06/10/22 06/10/22 06/10/22 12:01 12:10 14:00 WBC RBC Hgb Hct MCV MCH MCHC RDW Plt Count MPV Immature Gran % (Auto) Neut % (Auto) Lymph % (Auto) [place] % (Auto) Eos % (Auto) Baso % (Auto) Lymph # (Auto) [place] # (Auto) Eos # (Auto) Baso # (Auto) Abs Immat Gran (auto) Absolute Neuts (auto) Absolute Nucleated RBC Nucleated RBC % (auto) PT 16.2 H INR 1.4 H APTT 25.2 L Sodium Potassium Chloride Carbon Dioxide Anion Gap BUN Creatinine Estim Creat Clear Calc Estimated GFR Random Glucose Lactic Acid Calcium Magnesium Total Bilirubin AST ALT Alkaline Phosphatase Troponin I High Sens 32.2 B-Natriuretic Peptide 200 H Total Protein Albumin TSH Free T4 Urine Color Urine Appearance Urine pH Ur Specific [place] Urine Protein Urine Glucose (UA) Urine Ketones Urine Blood Urine Nitrite Ur Leukocyte Esterase Urine RBC Urine WBC Ur Squamous Epith Cells Urine Bacteria COVID-19 ([facility]) COVID-19 Clin Com Influenza Type A ([facility]) Influenza Type B ([facility]) Influenza A & B Note 06/10/22 06/11/22 06/11/22 15:05 06:23 06:23 WBC 14.8 H RBC 4.89 Hgb 14.6 Hct 42.1 MCV 86.1 MCH 29.9 MCHC 34.7 RDW 13.7 Plt Count 377 MPV 11.6 Immature Gran % (Auto) Neut % (Auto) Lymph % (Auto) [place] % (Auto) Eos % (Auto) Baso % (Auto) Lymph # (Auto) [place] # (Auto) Eos # (Auto) Baso # (Auto) Abs Immat Gran (auto) Absolute Neuts (auto) Absolute Nucleated RBC 0.000 Nucleated RBC % (auto) 0.0 PT INR APTT Sodium 138 Potassium 4.1 Chloride 99 Carbon Dioxide 25 Anion Gap 18 BUN 39 H Creatinine 0.92 Estim Creat Clear Calc 67.2 Estimated GFR > 60 Random Glucose 126 H Lactic Acid Calcium 9.7 Magnesium Total Bilirubin AST ALT Alkaline Phosphatase Troponin I High Sens B-Natriuretic Peptide Total Protein Albumin TSH Free T4 2.97 H Urine Color YELLOW Urine Appearance CLEAR Urine pH 6.0 Ur Specific [place] >= 1.030 H Urine Protein 1+ H Urine Glucose (UA) NEG Urine Ketones 40 Urine Blood NEG Urine Nitrite NEG Ur Leukocyte Esterase NEG Urine RBC 0 Urine WBC 0 Ur Squamous Epith Cells NONE Urine Bacteria 1+ COVID-19 ([facility]) COVID-19 Clin Com Influenza Type A ([facility]) Influenza Type B ([facility]) Influenza A & B Note ECG Interpretation: EKG shows atrial fibrillation with rate of 173/Min. Cannot exclude old inferior infarct. Aberrant conduction versus PVC. Previous EKGs from 2011 and that shows sinus rhythm. Imaging Radiologist's impression: Impressions Chest X-Ray 06/10/22 13:55 IMPRESSION: Hyperinflated lungs without acute process. Suspect 2 pulmonary nodules in the left hemithorax. Recommend CT chest correlation. No acute intracranial process seen. Age-related cerebral volume loss with chronic small vessel ischemic changes Head CT 06/10/22 14:02 IMPRESSION: Hyperinflated lungs without acute process. Suspect 2 pulmonary nodules in the left hemithorax. Recommend CT chest correlation. No acute intracranial process seen. Age-related cerebral volume loss with chronic small vessel ischemic changes Thyroid Ultrasound 06/11/22 09:25 IMPRESSION: Normal-sized thyroid gland with slight parenchymal heterogenicity and normal vascularity. Single solid TI-RADS category 3 nodule in the right thyroid lobe. A follow-up ultrasound is advised per below. ACR TI-RADS RECOMMENDATION REFERENCE: Ultrasound-guided fine-needle aspiration, followup ultrasound, no further follow up. * TR1 (0 point) and TR 2 (2 points): No FNA or follow up * TR3 (3 points): FNA if more than or equal to 2.5 cm in maximum dimension, followup ultrasound in 1, 3 and 5 years if 1.5 to 2.4 cm in maximum dimension. * TR4 (4-6 points): FNA if more than or equal to 1.5 cm in maximum dimension, followup ultrasound in 1, 2, 3 and 5 years if 1 to 1.4 cm in maximum dimension. * TR5 (more than or equal to 7 points): FNA if more than or equal to 1 cm in maximum dimension, followup ultrasound every year for 5 years if 0.5 to 0.9 cm in maximum dimension. * TR3, TR4 or TR5 nodules that are below the size threshold for follow up receive no follow up. Assessment and Plan (1) Atrial fibrillation with RVR: Status: Acute EKG shows atrial fibrillation with rapid rate. Could be related to underlying hyperthyroidism which is a new diagnosis. He has been commenced on beta- blockers. That seems acceptable. We can go up on the dose as guided by blood pressure. Also has been commenced on Eliquis. Agree. Echocardiogram for further evaluation. Will focus on rate control at this time. Clinically he has got no symptoms at all. (2) Elevated troponin: Status: Acute Borderline troponin elevation. Could be all from his atrial fibrillation/rapid. Possible underlying CAD. At this time, no specific plan. Echocardiogram as about to assess wall motion. (3) Thyrotoxicosis: Status: Acute New diagnosis. TSH and free T4 suggestive of hyperthyroid state. He has been commenced on methimazole. Will need to discuss with Endocrine about further planning. Adequate control thyroid will also help with atrial fibrillation. Plan Discussed with Dr. Spencer. Procedures Date of Service Date of Service: 06/11/22
[2022-06-11] MEDS: methIMAzole 10 MG TABLET 30 MG PO (10:29)
--- NOTE | 2022-06-11 12:23 | HO.PM.IMPN ---
Subjective Subjective Date of Service: 06/11/22 Interval History: Seen and evaluated this morning Feels more comfortable, heart rate better controlled TSH found to be to go suggestive thyrotoxicosis No reported overnight events Review of Systems No fever, chills Improved generalized weakness No chest pain, reports feeling his heart racing now No shortness of breath or coughing No abdominal pain, nausea or vomiting No urinary symptoms No any rash or wounds Physical Exam Vital Signs: Vital Signs: Last Vital Signs Temp 97.6 F 06/11/22 04:55 Pulse 98 06/11/22 11:48 Resp 20 06/11/22 11:48 BP 115/64 06/11/22 11:48 Pulse Ox 96 06/11/22 04:55 O2 Del Method 06/11/22 04:55 BMI result Body Mass Index 24.4 Const: Other: Constitutional : Alert, oriented, not in distress Neck : Normal inspection, Supple Cardiovascular : Irregular irregular, no JVP, no lower extremity edema, tachycardia Respiratory : fair bilateral air entry, no crackles, wheezes or rhonchi Gastrointestinal: soft, lax, Normal bowel sounds, Non tender Skin : Warm, Dry Neurological : Alert & oriented x3, No focal deficit , CN 2-12 within normal Objective Data Active Medications Acetaminophen (Acetaminophen 325 Mg Tablet) 650 mg PO Q6H PRN PRN Reason: Pain, Mild (Pain Scale 1-3) Apixaban (Apixaban 5 Mg Tablet) 5 mg PO BID [facility] Last Admin: 06/11/22 09:14 Dose: 5 mg Documented By: HITESH Methimazole (Methimazole 10 Mg Tablet) 30 mg PO DAILY [facility] Last Admin: 06/11/22 10:29 Dose: 30 mg Documented By: HITESH Metoprolol Tartrate (Metoprolol Tartrate 25 Mg Tablet) 25 mg PO QID [facility]; Protocol Last Admin: 06/11/22 09:13 Dose: 25 mg Documented By: HITESH Omeprazole (Omeprazole 20 Mg Capsule.Dr) 20 mg PO BID [facility] Last Admin: 06/11/22 09:12 Dose: 20 mg Documented By: HITESH Ondansetron HCl (Ondansetron Hcl 4 Mg/2 Ml Vial) 4 mg IVPUSH Q8H PRN PRN Reason: Nausea and Vomiting Last Admin: 06/10/22 20:01 Dose: 4 mg Documented By: JYOTI Pharmacy Consult (Consult Rx Perform Med Rec) 1 each MISCELLANE ONCE PRN PRN Reason: Consult order Sodium Chloride (0.9 % Sodium Chloride Flush 3 Ml Syringe) 3 ml IVFLUSH QSHIFT [facility] Last Admin: 06/11/22 09:14 Dose: 3 ml Documented By: HITESH Tamsulosin HCl (Tamsulosin Hcl 0.4 Mg Capsule) 0.4 mg PO DAILY [facility] Last Admin: 06/11/22 09:13 Dose: 0.4 mg Documented By: HITESH Tramadol HCl (Tramadol Hcl 50 Mg Tablet) 100 mg PO TID [facility] Last Admin: 06/11/22 09:12 Dose: 100 mg Documented By: HITESH Vitamin D (Cholecalciferol (Vitamin D3) 25 Mcg Tablet) 25 mcg PO DAILY [facility] Last Admin: 06/11/22 09:13 Dose: 25 mcg Documented By: HITESH Labs CBC & Chem 7: 06/11/22 06:23 06/11/22 06:23 Labs: Laboratory Results - last 24 hr 06/10/22 06/10/22 06/10/22 11:45 12:01 12:10 MCV MCH MCHC RDW Plt Count MPV Absolute Nucleated RBC Nucleated RBC % (auto) PT 16.2 H INR 1.4 H APTT 25.2 L Anion Gap Estim Creat Clear Calc Estimated GFR Random Glucose Calcium B-Natriuretic Peptide 200 H TSH < 0.01 L Free T4 Urine Color Urine Appearance Urine pH Ur Specific [place] Urine Protein Urine Glucose (UA) Urine Ketones Urine Blood Urine Nitrite Ur Leukocyte Esterase Urine RBC Urine WBC Ur Squamous Epith Cells Urine Bacteria 06/10/22 06/11/22 06/11/22 15:05 06:23 06:23 MCV 86.1 MCH 29.9 MCHC 34.7 RDW 13.7 Plt Count 377 MPV 11.6 Absolute Nucleated RBC 0.000 Nucleated RBC % (auto) 0.0 PT INR APTT Anion Gap 18 Estim Creat Clear Calc 67.2 Estimated GFR > 60 Random Glucose 126 H Calcium 9.7 B-Natriuretic Peptide TSH Free T4 2.97 H Urine Color YELLOW Urine Appearance CLEAR Urine pH 6.0 Ur Specific [place] >= 1.030 H Urine Protein 1+ H Urine Glucose (UA) NEG Urine Ketones 40 Urine Blood NEG Urine Nitrite NEG Ur Leukocyte Esterase NEG Urine RBC 0 Urine WBC 0 Ur Squamous Epith Cells NONE Urine Bacteria 1+ Assessment and Plan (1) Elevated troponin: Status: Acute (2) Thyrotoxicosis: Status: Acute (3) Atrial fibrillation with RVR: Status: Acute Plan A 77 years old male with PMH of back pain, BPH, GERD, COPD who presents to the hospital complaining of weakness for the last week or so. New muscle atrial fibrillation with RVR Discontinue Cardizem drip Pending echo Eliquis as blood thinner Keep on telemetry Cardiology input appreciated Elevated troponin likely demand mediated with AFib RVR not NSTEMI To check an echo Thyrotoxicosis New diagnosis Very low TSH, high T3-T4 Metoprolol for rate control Methimazole as antithyroid To discuss plan with Endocrinology tomorrow Lung nodule Two nodules Noticed on CXR to be followed as outpatient with CT scan GERD next Lyme continue omeprazole BPH Tamsulosin DVT PPX Eliquis The patient will likely need Overnight hospital stay for evaluation and treatment of a new onset AFib with RVR and thyrotoxicosis to prevent possible decompensation into heart failure. Quality Stroke Does the patient have a stroke diagnosis?: No VTE Prior VTE?: No VTE Risk Level:: Medical - moderate - high VTE Device Contraindication: Treatment Not Indicated VTE Drug Contraindication: N/A - Med Ordered
--- NOTE | 2022-06-11 13:30 | PC.NURSE ---
pt alert and starting to get slightly restless, keeps getting out of bed and pulling on his cardiac leads, pt heart will staying in the 90's still in a-fib while resting but it will jump up to 120's while getting up and moving around
[2022-06-11] MEDS: Metoprolol Tartrate 50 MG TABLET PO ×2 (16:39→19:33)
--- NOTE | 2022-06-11 17:10 | PC.NURSE ---
Attempted to call floor for report. Floor requesting to call back in few minutes
--- NOTE | 2022-06-11 17:22 | PC.NURSE ---
report given to imc rn
[2022-06-12] VITALS (7 sets, daily range): BP systolic 99–126; BP diastolic 59–78; PULSE 91–127; RESP 14–20; TEMP 36.4–36.8; O2SAT 95–98
--- NOTE | 2022-06-12 07:00 | CA_ITS ---
Transthoracic Echocardiogram Patient (Last, First, Middle): Kei Kate, Gender: Male Date of : 1945 Age: 77 Procedure Date: 06/12/2022 Procedure Type: Transthoracic [place] [facility] [place]: 177.8 cm Weight: 77.11 kg BSA: 1.95 m2 Heart Rate: bpm BP: 126 / 70 mmHg Book Or Script Editor: JORDAN Referring MD: Santos Spencer MD Edge Setter: Barney Viramontes MD Symptoms: new onset Afib w RvR Study Quality: Technically Difficult ECG Rhythm: Atrial Fibrillation Conclusions: - 1. Low normal LV systolic function with LVEF of 50-55% 2. Normal cardiac valvular Doppler 3. Normal RV systolic pressure 4. No gross pericardial effusion Findings Left Ventricle Normal left ventricular cavity size. There is normal left ventricular wall thickness. The left ventricular systolic function is low normal. The visually estimated ejection fraction is between 50-55%. E/E prime ratio is <8, consistent with normal filling pressures. Right Ventricle Mildly increased right ventricular cavity size. Atria The left atrium is normal in size. Interatrial shunt cannot be excluded. The right atrium is normal in size. Aortic Valve The aortic valve structure and function is likely normal. There is no aortic valve stenosis. There is no aortic valve regurgitation. Mitral Valve Likely normal mitral valve structure and function. There is no mitral valve regurgitation. There is no mitral valve stenosis. Pulmonic Valve The pulmonic valve was not well visualized. Tricuspid Valve Likely normal tricuspid valve structure and function. There is trace tricuspid valve regurgitation. Tricuspid regurgitation envelope is inadequate for calculation of right ventricular systolic pressure. The right ventricular systolic pressure is 21 mmHg. Normal right atrial pressure. There is no evidence of pulmonary hypertension. Great Vessels All visible segments of the aorta are normal in size. The pulmonary artery was not well visualized. Venous The inferior vena cava is normal in size and collapses greater than 50% with inspiration. Pericardium/Pleural There is no evidence of pericardial effusion. Measurements 2D Linear Measurements IVSd: 0.73 0.6-0.9/0.6-1.0 cm LVIDd: 4.15 3.9-5.3/4.2-5.9 cm LVIDd Index: 2.13 2.4-3.2/2.2-3.1 cm/m2 LVIDs: 3.49 2.0-3.6 cm LVPWd: 0.68 0.7-1.1 cm LA Diam: 2.90 2.7-3.8/3.0-4.0 cm LAIDs Index: 1.49 1.5-2.3 cm/m2 LV Mass: 104.04 67-162/88-224 g LV Mass Index: 53.35 43-95/49-115 g/m2 LVOT Diam: 2.20 3.0+(-)1.3 cm 2D Systolic Function EF 4C: 50.20 >55% EF 2C: 53.30 >55% EF BiP: 51.90 >55% Mitral Valve MV Pk E: 0.85 MV Decel Time: 197.00 E'Lateral: 12.70 E'Medial: 10.50 E/E' Med: 8.10 E/E' Lat: 6.70 PHT: 58.00 MVA PHT: 3.79 Decel Gregg: 4.36 Aortic Valve AoV Pk George: 0.96 AoV Mn George: 0.70 AoV VTI: 0.17 AoV Pk Grad: 4.00 Aov Mn Grad: 2.00 MAUREEN Cont.VTI: 2.25 LVOT LVOT Pk George: 0.61 LVOT Mn George: 0.41 LVOT VTI: 0.10 LVOT Pk Grad: 1.00 LVOT Mn Grad: 1.00 LVOT Diam: 2.20 LVOT Area: 3.80 Diastolic Function MV Pk E: 0.85 E'Medial: 10.50 E/E' Med: 8.10 E' Laterial: 12.70 E/E' Lat: 6.70 Right Ventricle TAPSE (mm): 12.60 TVS' George: 8.92 Tricuspid Valve TR Pk George: 2.10 TR Pk Grad: 18.00 RA Press: 3.00 RVSP: 21.00 Great Vessels Aorta Sinus of Valsalva: 3.35 2.0-3.[address] [place]: 2.87 1.7-3.4 cm Ao Asc: 3.40 2.1-3.4 cm Updated in Other Vendor System with Status of Final Barney Viramontes MD electronically signed on 06/13/2022 8:51:27 AM with status of Final
[2022-06-12 07:41] LABS: Anion Gap 19 (12-20); Blood Urea Nitrogen 53 mg/dL (9-16); Calcium 9.9 mg/dL (8.4-10.2); Carbon Dioxide 24 mmol/L (22-29); Chloride 97 mmol/L (96-108); Creatinine Clr Calc Pharmacy 44.4; Estimated Glomerular Filt Rate 49; Glucose Random 119 mg/dL (60-115); Sodium 136 mmol/L (135-145)
[2022-06-12] MEDS: traMADoL HCL 50 MG TABLET 100 MG PO ×3 (08:44→20:06)
[2022-06-12] MEDS: methIMAzole 10 MG TABLET 30 MG PO (08:44)
[2022-06-12] MEDS: Cholecalciferol (Vitamin D3) 25 MCG TABLET PO (08:44)
[2022-06-12] MEDS: Apixaban 5 MG TABLET PO ×2 (08:44→20:05)
[2022-06-12] MEDS: Metoprolol Tartrate 50 MG TABLET PO (08:44)
[2022-06-12] MEDS: Tamsulosin HCL 0.4 MG CAPSULE PO (08:44)
[2022-06-12] MEDS: Omeprazole 20 MG CAPSULE.DR PO ×2 (08:44→20:10)
[2022-06-12] MEDS: 0.9 % Sodium Chloride Flush 3 ML SYRINGE IVFLUSH ×2 (08:44→23:47)
--- NOTE | 2022-06-12 09:49 | P.PNCA_ITS ---
Subjective Subjective Date of Service: 06/12/22 <THOMAS Bonner - Last Filed: 06/12/22 12:04> 06/12/22 <Barney Viramontes MD - Last Filed: 06/12/22 13:05> Principal diagnosis: Afib RVR, hyperthyroid <THOMAS Bonner - Last Filed: 06/12/22 12:04> Interval history: Seen at 0820. Today he reports that he feels good. No chest pains, heart palpitations, dizziness, sob. He is anxious to get out of hospital and he needs to go to the bank for a new ID and bill money. 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 Heart rates noted to be elevated. Echo is pending. <THOMAS Bonner - Last Filed: 06/12/22 12:04> Review of Systems Review of Systems as above <THOMAS Bonner - Last Filed: 06/12/22 12:04> Yes all other systems are reviewed and are negative <THOMAS Bonner - Last Filed: 06/12/22 12:04> Physical Exam Vital Signs: Last Vital Signs Temp 97.5 F 06/12/22 07:54 Pulse 127 H 06/12/22 09:14 Resp 20 06/12/22 07:54 BP 99/70 06/12/22 09:14 Pulse Ox 97 06/12/22 09:14 O2 Del Method 06/12/22 07:54 BMI result Body Mass Index 24.4 <THOMAS Bonner - Last Filed: 06/12/22 12:04> Const Other: mildly disoriented, tells me he lives 2 floors up. Had to remind him he is in hospital. Moving around room steadily <THOMAS Bonner Last Filed: 06/12/22 12:04> General: comfortable, no acute distress, alert and awake <THOMAS Bonner Last Filed: 06/12/22 12:04> Neck Neck: Yes normal visual inspection and Yes no JVD <THOMAS Bonner - Last Filed: 06/12/22 12:04> Resp Effort & Inspection: normal respiratory effort <THOMAS Bonner - Last Filed: 06/12/22 12:04> Auscultation: clear to auscultation bilaterally, no crackles, no rales, no rhonchi and no wheezes <BRAD BonnerC - Last Filed: 06/12/22 12:04> Cardio Rate: tachycardic <Stella BRAD HutchisonC - Last Filed: 06/12/22 12:04> Rhythm: abnormal rhythm irregularly irregular <Stella BRAD HutchisonC - Last Filed: 06/12/22 12:04> Heart sounds: S1 normal heart sound present, S2 normal heart sound present, no murmurs and no rubs <BRAD BonnerC - Last Filed: 06/12/22 12:04> GI Inspection: Yes normal to inspection <THOMAS Bonner - Last Filed: 06/12/22 12:04> Extrem General: Yes normal to inspection <BRAD BonnerC - Last Filed: 06/12/22 12:04> Objective Labs and Meds Result diagrams: : 06/11/22 06:23 06/12/22 06:55 <THOMAS Bonner - Last Filed: 06/12/22 12:04> Lab results: Laboratory Results - last 24 hr 06/12/22 06:55 Sodium 136 Potassium 4.0 Chloride 97 Carbon Dioxide 24 Anion Gap 19 BUN 53 H Creatinine 1.39 Estim Creat Clear Calc 44.4 Estimated GFR 49 Random Glucose 119 H Calcium 9.9 <THOMAS Bonner - Last Filed: 06/12/22 12:04> Imaging Radiologist's impression: Impressions Thyroid Ultrasound 06/11/22 09:25 IMPRESSION: Normal-sized thyroid gland with slight parenchymal heterogenicity and normal vascularity. Single solid TI-RADS category 3 nodule in the right thyroid lobe. A follow-up ultrasound is advised per below. ACR TI-RADS RECOMMENDATION REFERENCE: Ultrasound-guided fine-needle aspiration, followup ultrasound, no further follow up. * TR1 (0 point) and TR 2 (2 points): No FNA or follow up * TR3 (3 points): FNA if more than or equal to 2.5 cm in maximum dimension, followup ultrasound in 1, 3 and 5 years if 1.5 to 2.4 cm in maximum dimension. * TR4 (4-6 points): FNA if more than or equal to 1.5 cm in maximum dimension, followup ultrasound in 1, 2, 3 and 5 years if 1 to 1.4 cm in maximum dimension. * TR5 (more than or equal to 7 points): FNA if more than or equal to 1 cm in maximum dimension, followup ultrasound every year for 5 years if 0.5 to 0.9 cm in maximum dimension. * TR3, TR4 or TR5 nodules that are below the size threshold for follow up receive no follow up. <THOMAS Bonner - Last Filed: 06/12/22 12:04> Progress Note: A&P Assessment and plan (1) Atrial fibrillation with RVR: Status: Acute <THOMAS Bonner - Last Filed: 06/12/22 12:04> Assessment and Plan: Presented to [facility] [place] with weakness. Found to have new atrial fibrillation with RVR. Also noted to have hyperthyroidism. Treated with heart rate control and anticoagulation. For his hyperthyroid, he was started on Methimazole. He did not wear the pile driver operator helper during the night but is willing to reapply this am. He denies symptoms this am. Heart rates are not well controlled. He is on Metoprolol and should be changed to Propranolol, which is better for heart rate control with hyperthryoid states. Can use Diltiazem drip as well for heart rate control. Continue Eliquis for anticoagulation. Ongoing tele monitoring. Echocardiogram is pending. <THOMAS Bonner - Last Filed: 06/12/22 12:04> Presented to [facility] [place] with weakness. Found to have new atrial fibrillation with RVR. Also noted to have hyperthyroidism. Treated with heart rate control and anticoagulation. For his hyperthyroid, he was started on Methimazole. He did not wear the pile driver operator helper during the night but is willing to reapply this am. He denies symptoms this am. Heart rates are not well controlled. He is on Metoprolol and should be changed to Propranolol, which is better for heart rate control with hyperthryoid states. Can use Diltiazem drip as well for heart rate control. Continue Eliquis for anticoagulation. Ongoing tele monitoring. Echocardiogram is pending. Patient seen and examined. Case discussed with Stella Hutchison. Patient appears mildly anxious. However after discussing his heart condition he was understanding. Requires better rate control. Switch his metoprolol to propranolol for reducing peripheral conversion of T4-T3. Start on IV Cardizem drip. Continue full oral anticoagulation with Eliquis. Aggressive control of his hyperthyroidism. Will review the echocardiogram. Will continue to follow with the <Barney Viramontes MD - Last Filed: 06/12/22 13:05> (2) New onset atrial fibrillation: Status: Acute <THOMAS Bonner - Last Filed: 06/12/22 12:04> (3) Elevated troponin: Status: Acute <THOMAS Bonner - Last Filed: 06/12/22 12:04> Assessment and Plan: Mildly elevated, up to 37.9 this admit. Likely related to elevated heart rates. <THOMAS Bonner - Last Filed: 06/12/22 12:04> (4) Thyrotoxicosis: Status: Acute <THOMAS Bonner - Last Filed: 06/12/22 12:04> Assessment and Plan: Needs ongoing eval and treatment. <THOMAS Bonner - Last Filed: 06/12/22 12:04> Time Spent With Patient Time: Total time spent is greater than 50% in coordination of care (as documented) at patient's floor/unit and/or counseling patient: 22 <THOMAS Bonner - Last Filed: 06/12/22 12:04> Progress Note: Quality Stroke Does the patient have a stroke diagnosis?: No <THOMAS Bonner Last Filed: 06/12/22 12:04> Procedures Date of Service Date of Service: 06/12/22 <THOMAS Bonner - Last Filed: 06/12/22 12:04>
[2022-06-12 10:12] LABS: Triiodothyronine T3 Free 11.1 pg/mL (2.3-4.2); Triiodothyronine T3 Total 252 ng/dL (76-181)
[2022-06-12] MEDS: Lactulose 20 GM/30 ML SOLUTION PO (11:12)
[2022-06-12] MEDS: dilTIAZem HCL 125 MG in 0.9 % Sodium Chloride 100 ML 10 MG IVCONT (11:12)
--- NOTE | 2022-06-12 12:31 | HO.PM.IMPN ---
Subjective Subjective Date of Service: 06/12/22 Interval History: Seen and evaluated this morning Feels more comfortable, Heart rate increased to 150s overnight No reported overnight events Review of Systems No fever, chills Improved generalized weakness No chest pain, reports feeling palpitations No shortness of breath or coughing No abdominal pain, nausea or vomiting No urinary symptoms No any rash or wounds Physical Exam Vital Signs: Vital Signs: Last Vital Signs Temp 98.3 F 06/12/22 11:11 Pulse 103 H 06/12/22 11:11 Resp 20 06/12/22 11:11 BP 107/68 06/12/22 11:11 Pulse Ox 97 06/12/22 11:11 O2 Del Method 06/12/22 11:11 BMI result Body Mass Index 24.4 Const: Other: Constitutional : Alert, oriented, not in distress Neck : Normal inspection, Supple Cardiovascular : Irregular irregular, no JVP, no lower extremity edema, tachycardia Respiratory : fair bilateral air entry, no crackles, wheezes or rhonchi Gastrointestinal: soft, lax, Normal bowel sounds, Non tender Skin : Warm, Dry Neurological : Alert & oriented x3, No focal deficit , CN 2-12 within normal Objective Data Active Medications Acetaminophen (Acetaminophen 325 Mg Tablet) 650 mg PO Q6H PRN PRN Reason: Pain, Mild (Pain Scale 1-3) Apixaban (Apixaban 5 Mg Tablet) 5 mg PO BID [facility] Last Admin: 06/12/22 08:44 Dose: 5 mg Documented By: FREDA Docusate Sodium (Docusate Sodium 100 Mg Capsule) 100 mg PO BID [facility] Diltiazem HCl 125 mg/ Sodium (Chloride) 125 mls @ 0 mls/hr IVCONT .Q0M [facility]; Protocol Last Admin: 06/12/22 11:12 Dose: 10 mg/hr, 10 mls/hr Documented By: FREDA Methimazole (Methimazole 10 Mg Tablet) 30 mg PO DAILY [facility] Last Admin: 06/12/22 08:44 Dose: 30 mg Documented By: FREDA Metoprolol Tartrate (Metoprolol Tartrate 50 Mg Tablet) 50 mg PO QID [facility]; Protocol Last Admin: 06/12/22 08:44 Dose: 50 mg Documented By: FREDA Omeprazole (Omeprazole 20 Mg Capsule.) 20 mg PO BID [facility] Last Admin: 06/12/22 08:44 Dose: 20 mg Documented By: FREDA Ondansetron HCl (Ondansetron Hcl 4 Mg/2 Ml Vial) 4 mg IVPUSH Q8H PRN PRN Reason: Nausea and Vomiting Last Admin: 06/10/22 20:01 Dose: 4 mg Documented By: JYOTI Pharmacy Consult (Consult Rx Perform Med Rec) 1 each MISCELLANE ONCE PRN PRN Reason: Consult order Sodium Chloride (0.9 % Sodium Chloride Flush 3 Ml Syringe) 3 ml IVFLUSH QSHIFT [facility] Last Admin: 06/12/22 08:44 Dose: 3 ml Documented By: FREDA Tamsulosin HCl (Tamsulosin Hcl 0.4 Mg Capsule) 0.4 mg PO DAILY [facility] Last Admin: 06/12/22 08:44 Dose: 0.4 mg Documented By: FREDA Tramadol HCl (Tramadol Hcl 50 Mg Tablet) 100 mg PO TID [facility] Last Admin: 06/12/22 08:44 Dose: 100 mg Documented By: FREDA Vitamin D (Cholecalciferol (Vitamin D3) 25 Mcg Tablet) 25 mcg PO DAILY [facility] Last Admin: 06/12/22 08:44 Dose: 25 mcg Documented By: FREDA Labs CBC & Chem 7: 06/11/22 06:23 06/12/22 06:55 Labs: Laboratory Results - last 24 hr 06/11/22 06/12/22 06:23 06:55 Anion Gap 19 Estim Creat Clear Calc 44.4 Estimated GFR 49 Random Glucose 119 H Calcium 9.9 Free T3 11.1 H Total T3 252 H Microbiology Microbiology Results: Microbiology 06/10/22 11:45 Blood Culture - Preliminary Blood - Venous No growth after 24 hours. 06/10/22 11:45 Blood Culture - Preliminary Blood - Venous No growth after 24 hours. Assessment and Plan (1) Atrial fibrillation with RVR: Status: Acute (2) New onset atrial fibrillation: Status: Acute (3) Thyrotoxicosis: Status: Acute Plan A 77 years old male with PMH of back pain, BPH, GERD, COPD who presents to the hospital complaining of weakness for the last week or so. New muscle atrial fibrillation with RVR heart rate elevated to 140s, 150s restart Cardizem drip Pending echo Eliquis as blood thinner Keep on telemetry Cardiology input appreciated , start Cardizem, change metoprolol to propranolol Elevated troponin likely demand mediated with AFib RVR not NSTEMI pending echo Thyrotoxicosis New diagnosis Very low TSH, high T3-T4 changed to propranolol for rate control and decrease conversion Methimazole as antithyroid To discuss plan with Endocrinology Lung nodule Two nodules Noticed on CXR to be followed as outpatient with CT scan GERD continue omeprazole BPH Tamsulosin DVT PPX Eliquis The patient will likely need Overnight hospital stay for evaluation and treatment of a new onset AFib with RVR and thyrotoxicosis to prevent possible decompensation into heart failure. Quality Stroke Does the patient have a stroke diagnosis?: No VTE Prior VTE?: No VTE Risk Level:: Medical - moderate - high VTE Device Contraindication: Treatment Not Indicated VTE Drug Contraindication: N/A - Med Ordered
--- NOTE | 2022-06-12 14:15 | MHC.CM.PN ---
Addendum entered by Lorena Keller 06/13/22 11:29: [facility] HAS RESPONDED AND THEY ARE NOT IN CONTRACT WITH PTS INSURANCE 4 MORE REFERRALS WERE MADE BASED ON INSURANCE COVERAGE AND LOCATION Original Note: PT REPORTS HE DOES NOT HAVE STABLE HOUSING AT THIS TIME HE REPORTS HIS EX- AND SISTER ARE BOTH GOOD SUPPORTS WHO HELP HIM WHEN POSSIBLE PT DENIES USE OF DME OR COMMUNITY SERVICES PT REPORTS HE HAS A PCP AT [facility], HE DOES NOT KNOW THE NAME HE REPORTS HE IS COVID VACCINATED BUT NOT BOOSTED IMM DELIVERED PT HAS BEEN SEEN BY PHYSICAL THERAPY AND STR HAS BEEN RECOMMENDED PT REQUESTS REFERRALS TO THE [facility] TRANSPORT LIKELY TO BE FAMILY VS CHAIR VAN
[2022-06-12] MEDS: Propranolol HCL 20 MG TABLET PO ×2 (16:05→20:05)
[2022-06-12] MEDS: methIMAzole 10 MG TABLET PO (20:06)
[2022-06-13] VITALS (7 sets, daily range): BP systolic 88–181; BP diastolic 52–81; PULSE 83–120; RESP 14–20; TEMP 36.1–36.7; O2SAT 93–99
[2022-06-13] MEDS: Propranolol HCL 20 MG TABLET PO (06:41)
--- NOTE | 2022-06-13 06:43 | PC.NURSE ---
pt refusing site monitor on and off throughout the night and also have removed 3 IVs overnight. New onset afib diagnosis maintaining 80-90s Afib throughout the night on cardizem drip. At 0630 removed IV and heartrate increased to afib 150s. Pt unwilling to have new IV inserted. Pathology Tech and MD aware. states to give PO propanolol early. pt still mainaintaing HR in 150s. Will continue to monitor
[2022-06-13 09:23] LABS: Hemoglobin 13.6 g/dl (14.0-18.0); Mean Corpuscular HGB Conc 34.9 g/dl (31.0-36.0); Mean Corpuscular Hemoglobin 29.3 pg (27.0-33.0); Mean Corpuscular Volume 84.1 fL (80.0-98.0); Mean Platelet Volume 11.8 fL (9.4-12.4); PLT CLUMP 1; Red Blood Count 4.64 X10*6/uL (4.60-5.80); Red Cell Distribution Width 13.3 % (11.0-16.0)
--- NOTE | 2022-06-13 09:32 | PM.PNCARD ---
Subjective Subjective Date of Service: 06/13/22 <THOMAS Bonner - Last Filed: 06/13/22 11:13> 06/13/22 <Barney Viramontes MD - Last Filed: 06/13/22 13:00> Principal diagnosis: Afib RVR, hyperthyroid <THOMAS Bonner - Last Filed: 06/13/22 11:13> Interval history: Seen at 0825. Today he is noted to have frustration and states he has been waiting here for 6 hours . He seems to be forgetful about the reason for his hospitalization and events of this stay. He is oriented to most questions. He says he can feel his heart going fast at times. No chest pains, sob, dizziness, edema. Has been up in room ad [place]. At present he has no IV access as he tells me he did not want it. IV cardizem not infusing. Tele shows Afib with elevated rates. <THOMAS Bonner - Last Filed: 06/13/22 11:13> Review of Systems Review of Systems as above <THOMAS Bonner - Last Filed: 06/13/22 11:13> Yes all other systems are reviewed and are negative <THOMAS Bonner - Last Filed: 06/13/22 11:13> Physical Exam Vital Signs: Last Vital Signs Temp 98.1 F 06/13/22 07:46 Pulse 120 H 06/13/22 07:46 Resp 20 06/13/22 07:46 BP 181/81 H 06/13/22 07:46 Pulse Ox 95 06/13/22 07:46 O2 Del Method 06/13/22 07:46 BMI result Body Mass Index 24.4 <THOMAS Bonner - Last Filed: 06/13/22 11:13> Const General: cooperative, comfortable and no acute distress <THOMAS Bonner Last Filed: 06/13/22 11:13> Neck Neck: Yes normal visual inspection and Yes no JVD <THOMAS Bonner - Last Filed: 06/13/22 11:13> Resp Effort & Inspection: normal respiratory effort <THOMAS Bonner Last Filed: 06/13/22 11:13> Auscultation: clear to auscultation bilaterally, no crackles, no rales, no rhonchi and no wheezes <Stella HutchisonBRADC - Last Filed: 06/13/22 11:13> Cardio Jugular venous distension: no JVD <Stella HutchisonBRADC - Last Filed: 06/13/22 11:13> Rate: tachycardic <Stella HutchisonBRADC - Last Filed: 06/13/22 11:13> Rhythm: abnormal rhythm irregularly irregular <Stella HutchisonBRADC - Last Filed: 06/13/22 11:13> Heart sounds: S1 normal heart sound present, S2 normal heart sound present, no gallops, no murmurs and no rubs <Stella HutchisonBRADC - Last Filed: 06/13/22 11:13> GI Inspection: Yes normal to inspection <Stella Barraza BRAD HutchisonC - Last Filed: 06/13/22 11:13> Extrem General: Yes normal to inspection and No no pedal edema <Stella HutchisonBRADC - Last Filed: 06/13/22 11:13> Objective Labs and Meds Result diagrams: : 06/13/22 08:51 06/13/22 08:51 <Stella HutchisonBRADC - Last Filed: 06/13/22 11:13> Lab results: Laboratory Results - last 24 hr 06/11/22 06/13/22 06:23 08:51 RBC 4.64 Hgb 13.6 L Hct 39.0 L MCV 84.1 MCH 29.3 MCHC 34.9 RDW 13.3 MPV 11.8 Absolute Nucleated RBC 0.000 Nucleated RBC % (auto) 0.0 Free T3 11.1 H Total T3 252 H <Stella Barraza THOMAS Hutchison - Last Filed: 06/13/22 11:13> Progress Note: A&P Assessment and plan (1) Atrial fibrillation with RVR: Status: Acute <Stella KnightTHOMAS aleman - Last Filed: 06/13/22 11:13> Assessment and Plan: [place] [facility] [place]. Found to have new atrial fibrillation with RVR. Also noted to have hyperthyroidism. Treated with heart rate control and anticoagulation. For his hyperthyroid, he was started on Methimazole. For heart rate conntro he was initially on Metoprolol and now on Propranolol which is better in pt that is hyperthyroid. Tele monitor showing ongoing afib, rates elevated between 100-150s. He does feel his heart going fast at times. He needs IV access, then will order Digoxin 0.25mg IV q 6 hr x3 doses. Will also increase Propranolol to 40mg QID, from 20mg QID. Ongoing tele monitoring. Can keep off Diltiazem drip as pt had been refusing. Continue Eliquis for anticoagulation. Echocardiogram is still pending. We will follow. <THOMAS Bonner - Last Filed: 06/13/22 11:13> Present[place] [facility] [place]. Found to have new atrial fibrillation with RVR. Also noted to have hyperthyroidism. Treated with heart rate control and anticoagulation. For his hyperthyroid, he was started on Methimazole. For heart rate conntro he was initially on Metoprolol and now on Propranolol which is better in pt that is hyperthyroid. Tele monitor showing ongoing afib, rates elevated between 100-150s. He does feel his heart going fast at times. He needs IV access, then will order Digoxin 0.25mg IV q 6 hr x3 doses. Will also increase Propranolol to 40mg QID, from 20mg QID. Ongoing tele monitoring. Can keep off Diltiazem drip as pt had been refusing. Continue Eliquis for anticoagulation. Echocardiogram is still pending. We will follow. Patient seen and examined. Case discussed with Stella. Patient continues to be in atrial fibrillation rapid ventricular response, agitated and sometimes refusing his medication including his IV. Eventually agreed to it. IV digoxin loading. Increase propranolol. Continue treat hyperthyroidism. Continue full oral anticoagulation. Management plan was discussed with patient in detail. Will continue to follow with you <Barney Viramontes MD - Last Filed: 06/13/22 13:00> (2) New onset atrial fibrillation: Status: Acute <THOMAS Bonner - Last Filed: 06/13/22 11:13> (3) Thyrotoxicosis: Status: Acute <THOMAS Bonner - Last Filed: 06/13/22 11:13> Assessment and Plan: Needs ongoing eval and treatment. <THOMAS Bonner - Last Filed: 06/13/22 11:13> Time Spent With Patient Time: Total time spent is greater than 50% in coordination of care (as documented) at patient's floor/unit and/or counseling patient: 22 <THOMAS Bonner - Last Filed: 06/13/22 11:13> Progress Note: Quality Stroke Does the patient have a stroke diagnosis?: No <THOMAS Bonner - Last Filed: 06/13/22 11:13> Procedures Date of Service Date of Service: 06/13/22 <THOMAS Bonner - Last Filed: 06/13/22 11:13>
[2022-06-13 09:36] LABS: Anion Gap 20 (12-20); Blood Urea Nitrogen 42 mg/dL (9-16); Calcium 9.5 mg/dL (8.4-10.2); Carbon Dioxide 17 mmol/L (22-29); Chloride 100 mmol/L (96-108); Creatinine Clr Calc Pharmacy 50.2; Estimated Glomerular Filt Rate 57; Glucose Random 127 mg/dL (60-115); Potassium 4.3 mmol/L (3.3-5.1); Sodium 133 mmol/L (135-145)
[2022-06-13] MEDS: dilTIAZem HCL 125 MG in 0.9 % Sodium Chloride 100 ML 10 MG IVCONT ×2 (10:35→18:06)
[2022-06-13] MEDS: QUEtiapine Fumarate 25 MG TABLET 12.5 MG PO (10:37)
[2022-06-13] MEDS: Apixaban 5 MG TABLET PO ×2 (10:39→20:33)
[2022-06-13] MEDS: 0.9 % Sodium Chloride Flush 3 ML SYRINGE IVFLUSH ×2 (10:39→17:19)
[2022-06-13] MEDS: Omeprazole 20 MG CAPSULE.DR PO ×2 (10:40→20:33)
[2022-06-13] MEDS: Cholecalciferol (Vitamin D3) 25 MCG TABLET PO (10:40)
[2022-06-13] MEDS: methIMAzole 10 MG TABLET PO ×3 (10:40→20:33)
[2022-06-13] MEDS: Docusate Sodium 100 MG CAPSULE PO ×2 (10:40→20:32)
[2022-06-13] MEDS: traMADoL HCL 50 MG TABLET 100 MG PO ×3 (10:41→20:32)
[2022-06-13] MEDS: Tamsulosin HCL 0.4 MG CAPSULE PO (10:41)
[2022-06-13 10:50] LABS: Platelet Count 315 X10*3/uL (160-400); White Blood Count 9.4 X10*3/uL (4.8-10.8)
[2022-06-13] MEDS: Digoxin 0.5 MG/2 ML AMPUL 0.25 MG IVPUSH ×2 (12:56→17:19)
[2022-06-13] MEDS: Propranolol HCL 40 MG TABLET PO ×3 (12:57→20:32)
--- NOTE | 2022-06-13 13:55 | HO.PM.IMPN ---
Subjective Subjective Date of Service: 06/13/22 Interval History: Seen and evaluated this morning he was planned to leave AMA, confused Responded to redirection and agreed to continue treatment Heart rate elevated this morning, but improved in the afternoon No reported overnight events Review of Systems No fever, chills Improved generalized weakness No chest pain, reports not feeling palpitations No shortness of breath or coughing No abdominal pain, nausea or vomiting No urinary symptoms No any rash or wounds Physical Exam Vital Signs: Vital Signs: Last Vital Signs Temp 97.9 F 06/13/22 11:05 Pulse 98 06/13/22 11:05 Resp 18 06/13/22 11:05 BP 101/68 06/13/22 11:05 Pulse Ox 97 06/13/22 11:05 O2 Del Method 06/13/22 11:05 BMI result Body Mass Index 24.4 Const: Other: Constitutional : Alert, interactive, not in distress Neck : Normal inspection, Supple Cardiovascular : Irregular irregular, no JVP, no lower extremity edema, tachycardia Respiratory : fair bilateral air entry, no crackles, wheezes or rhonchi Gastrointestinal: soft, lax, Normal bowel sounds, Non tender Skin : Warm, Dry Neurological : Alert & disoriented, No focal deficit , CN 2-12 within normal Objective Data Active Medications Acetaminophen (Acetaminophen 325 Mg Tablet) 650 mg PO Q6H PRN PRN Reason: Pain, Mild (Pain Scale 1-3) Apixaban (Apixaban 5 Mg Tablet) 5 mg PO BID FORMERLY [facility], [facility] Last Admin: 06/13/22 10:39 Dose: 5 mg Documented By: DENISHA Digoxin (Digoxin 0.5 Mg/2 Ml Ampul) 0.25 mg IVPUSH Q6H FORMERLY [facility], [facility]1983 Stop: 06/14/22 00:01 Last Admin: 06/13/22 12:56 Dose: 0.25 mg Documented By: DENISHA Docusate Sodium (Docusate Sodium 100 Mg Capsule) 100 mg PO BID FORMERLY [facility], [facility] Last Admin: 06/13/22 10:40 Dose: 100 mg Documented By: DENISHA Methimazole (Methimazole 10 Mg Tablet) 10 mg PO TID [facility], [facility] Last Admin: 06/13/22 10:40 Dose: 10 mg Documented By: DENISHA Omeprazole (Omeprazole 20 Mg Capsule.) 20 mg PO BID FORMERLY [facility], [facility] Last Admin: 06/13/22 10:40 Dose: 20 mg Documented By: DENISHA Ondansetron HCl (Ondansetron Hcl 4 Mg/2 Ml Vial) 4 mg IVPUSH Q8H PRN PRN Reason: Nausea and Vomiting Last Admin: 06/10/22 20:01 Dose: 4 mg Documented By: JYOTI Pharmacy Consult (Consult Rx Perform Med Rec) 1 each MISCELLANE ONCE PRN PRN Reason: Consult order Propranolol HCl (Propranolol Hcl 40 Mg Tablet) 40 mg PO QID [facility]LY [facility], [facility]; Protocol Last Admin: 06/13/22 12:57 Dose: 40 mg Documented By: DENISHA Quetiapine Fumarate (Quetiapine Fumarate 25 Mg Tablet) 25 mg PO ONCE PRN PRN Reason: anxiety/restlessness Sodium Chloride (0.9 % Sodium Chloride Flush 3 Ml Syringe) 3 ml IVFLUSH QSHIFT [facility], [facility] Last Admin: 06/13/22 10:39 Dose: 3 ml Documented By: DENISHA Tamsulosin HCl (Tamsulosin Hcl 0.4 Mg Capsule) 0.4 mg PO DAILY [facility], [facility] Last Admin: 06/13/22 10:41 Dose: 0.4 mg Documented By: DENISHA Tramadol HCl (Tramadol Hcl 50 Mg Tablet) 100 mg PO TID [facility], [facility] Last Admin: 06/13/22 10:41 Dose: 100 mg Documented By: DENISHA Vitamin D (Cholecalciferol (Vitamin D3) 25 Mcg Tablet) 25 mcg PO DAILY [facility], [facility] Last Admin: 06/13/22 10:40 Dose: 25 mcg Documented By: DENISHA Labs CBC & Chem 7: 06/13/22 08:51 06/13/22 08:51 Labs: Laboratory Results - last 24 hr 06/13/22 06/13/22 08:51 08:51 MCV 84.1 MCH 29.3 MCHC 34.9 RDW 13.3 Plt Count 315 MPV 11.8 Absolute Nucleated RBC 0.000 Nucleated RBC % (auto) 0.0 Anion Gap 20 Estim Creat Clear Calc 50.2 Estimated GFR 57 Random Glucose 127 H Calcium 9.5 Microbiology Microbiology Results: Microbiology 06/10/22 11:45 Blood Culture - Preliminary Blood - Venous No growth after 48 hours. 06/10/22 11:45 Blood Culture - Preliminary Blood - Venous No growth after 48 hours. Assessment and Plan (1) Thyrotoxicosis: Status: Acute (2) Atrial fibrillation with RVR: Status: Acute (3) Acute metabolic encephalopathy: Status: Acute Plan A 77 years old male with PMH of back pain, BPH, GERD, COPD who presents to the hospital complaining of weakness for the last week or so. New muscle atrial fibrillation with RVR heart rate elevated to 140s-150s echo showing EF of 50-55% Eliquis as blood thinner Keep on telemetry Cardiology input appreciated , start Digoxin, increase propranolol Discontinue Cardizem drip loaded with digoxin Increase propranolol to 40 mg q.i.d. Thyrotoxicosis New diagnosis Very low TSH, high T3-T4 Increase propranolol for rate control and decrease conversion Methimazole as antithyroid plan discussed with Endocrinology, to recheck with tomorrow before discharging the patient for a follow-up plan pending thyroglobulin Ab, thyroid peroxidase and TSH receptor Ab metabolic encephalopathy Likely secondary to inpatient delirium Recurrent redirection Small dose of Seroquel for now Lung nodule Two nodules Noticed on CXR to be followed as outpatient with CT scan GERD continue omeprazole BPH Tamsulosin DVT PPX Eliquis The patient will likely need Overnight hospital stay for evaluation and treatment of a new onset AFib with RVR and thyrotoxicosis to prevent possible decompensation into heart failure. Quality Stroke Does the patient have a stroke diagnosis?: No VTE Prior VTE?: No VTE Risk Level:: Medical - moderate - high VTE Device Contraindication: Treatment Not Indicated VTE Drug Contraindication: N/A - Med Ordered
[2022-06-13] MEDS: QUEtiapine Fumarate 25 MG TABLET PO ×2 (17:19→18:06)
[2022-06-13 19:49] LABS: Free T4 (Free Thyroxine) 2.45 ng/dL (0.71-1.85)
[2022-06-13] MEDS: Sodium Bicarbonate 650 MG TABLET PO (20:33)
[2022-06-14 01:32] LABS: Thyroglobulin 78.8 ng/mL; Thyroglobulin Antibodies <1 IU/mL (< or = 1); Thyroid Peroxidase Antibodies 213 IU/mL (<9)
[2022-06-14 07:52] LABS: Anion Gap 16 (12-20); Blood Urea Nitrogen 35 mg/dL (9-16); Calcium 9.4 mg/dL (8.4-10.2); Carbon Dioxide 26 mmol/L (22-29); Chloride 102 mmol/L (96-108); Creatinine Clr Calc Pharmacy 49.4; Estimated Glomerular Filt Rate 56; Glucose Random 93 mg/dL (60-115); Potassium 4.2 mmol/L (3.3-5.1); Sodium 140 mmol/L (135-145)
[2022-06-14 08:06] VITALS: BP 104/63; PULSE 106; RESP 16; TEMP 36.1; O2SAT 97
[2022-06-14] MEDS: Apixaban 5 MG TABLET PO ×2 (08:38→20:29)
[2022-06-14] MEDS: Tamsulosin HCL 0.4 MG CAPSULE PO (08:38)
[2022-06-14] MEDS: Docusate Sodium 100 MG CAPSULE PO ×2 (08:38→20:30)
[2022-06-14] MEDS: traMADoL HCL 50 MG TABLET 100 MG PO ×3 (08:38→20:30)
[2022-06-14] MEDS: Propranolol HCL 40 MG TABLET PO (08:38)
[2022-06-14] MEDS: Cholecalciferol (Vitamin D3) 25 MCG TABLET PO (08:38)
[2022-06-14] MEDS: Sodium Bicarbonate 650 MG TABLET PO ×2 (08:38→20:30)
[2022-06-14] MEDS: Omeprazole 20 MG CAPSULE.DR PO ×2 (08:38→20:29)
[2022-06-14] MEDS: methIMAzole 10 MG TABLET PO (08:38)
--- NOTE | 2022-06-14 09:01 | PM.PNCARD ---
Subjective Subjective Date of Service: 06/14/22 <THOMAS Bonner - Last Filed: 06/14/22 09:19> 06/14/22 <Barney Viramontes MD - Last Filed: 06/14/22 09:48> Principal diagnosis: Afib RVR, hyperthyroid <THOMAS Bonner - Last Filed: 06/14/22 09:19> Interval history: Seen at 0820. Today he reports that he did not sleep well but does not give reason. Removed his IV during the night, says it was hanging . Denies chest pains, palpitation, dizziness, sob. Easily upset, wants to get out of here . Repositions self easily, reports being steady on his feet when upright.Tele showing afib with better controlled rates, average 90s- range 83-120. <THOMAS Bonner - Last Filed: 06/14/22 09:19> Review of Systems Review of Systems as above <THOMAS Bonner - Last Filed: 06/14/22 09:19> Yes all other systems are reviewed and are negative <THOMAS Bonner - Last Filed: 06/14/22 09:19> Physical Exam Vital Signs: Last Vital Signs Temp 97.0 F 06/14/22 08:06 Pulse 106 H 06/14/22 08:06 Resp 16 06/14/22 08:06 BP 104/63 06/14/22 08:06 Pulse Ox 97 06/14/22 08:06 O2 Del Method 06/14/22 08:06 BMI result Body Mass Index 24.4 <THOMAS Bonner - Last Filed: 06/14/22 09:19> Const General: cooperative, comfortable and no acute distress <THOMAS Bonner - Last Filed: 06/14/22 09:19> Orientation/consciousness: patient oriented x3 <THOMAS Bonner Last Filed: 06/14/22 09:19> Neck Neck: Yes normal visual inspection and Yes no JVD <THOMAS Bonner Last Filed: 06/14/22 09:19> Resp Effort & Inspection: normal respiratory effort <THOMAS Bonner Last Filed: 06/14/22 09:19> Auscultation: clear to auscultation bilaterally, no crackles, no rales, no rhonchi and no wheezes [facility] Foster[facility] - Last Filed: 06/14/22 09:19> Cardio Jugular venous distension: no JVD <[facility] - Last Filed: 06/14/22 09:19> Rate: regular rate <[facility] - Last Filed: 06/14/22 09:19> Heart sounds: S1 normal heart sound present, S2 normal heart sound present, no gallops, no murmurs and no rubs <[facility] - Last Filed: 06/14/22 09:19> Peripheral pulses: Peripheral pulses 2+ throughout <[facility] - Last Filed: 06/14/22 09:19> Neuro General: patient oriented x3 <[facility] - Last Filed: 06/14/22 09:19> Extrem General: Yes normal to inspection and No no pedal edema <[facility] - Last Filed: 06/14/22 09:19> Psych Mental Status: mental status grossly normal <[facility] - Last Filed: 06/14/22 09:19> Speech and movement: Normal speech and movement present <[facility] - Last Filed: 06/14/22 09:19> Objective Labs and Meds Result diagrams: : 06/13/22 08:51 06/14/22 06:59 <[facility] - Last Filed: 06/14/22 09:19> Lab results: Laboratory Results - last 24 hr 06/12/22 06/13/22 06/13/22 15:48 08:51 08:51 WBC 9.4 RBC 4.64 Hgb 13.6 L Hct 39.0 L MCV 84.1 MCH 29.3 MCHC 34.9 RDW 13.3 Plt Count 315 MPV 11.8 Absolute Nucleated RBC 0.000 Nucleated RBC % (auto) 0.0 Sodium 133 L Potassium 4.3 Chloride 100 Carbon Dioxide 17 L Anion Gap 20 BUN 42 H Creatinine 1.23 Estim Creat Clear Calc 50.2 Estimated GFR 57 Random Glucose 127 H Calcium 9.5 Free T4 Thyroglobulin 78.8 H Thyroglobulin Antibody <1 Thyroid Peroxidase Ab 213 H 06/13/22 06/14/22 18:29 06:59 WBC RBC Hgb Hct MCV MCH MCHC RDW Plt Count MPV Absolute Nucleated RBC Nucleated RBC % (auto) Sodium 140 Potassium 4.2 Chloride 102 Carbon Dioxide 26 Anion Gap 16 BUN 35 H Creatinine 1.25 Estim Creat Clear Calc 49.4 Estimated GFR 56 Random Glucose 93 Calcium 9.4 Free T4 2.45 H Thyroglobulin Thyroglobulin Antibody Thyroid Peroxidase Ab <THOMAS Bonner - Last Filed: 06/14/22 09:19> Progress Note: A&P Assessment and plan (1) Atrial fibrillation with RVR: Status: Acute <THOMAS Bonner - Last Filed: 06/14/22 09:19> Assessment and Plan: [place] [facility]. Found to have new atrial fibrillation with RVR, thyroidtoxicosis. Treated with heart rate control and anticoagulation. For his hyperthyroid, he was started on Methimazole. For heart rate he is on Propranolol and was given an IV Digoxin load yesterday. He was on Diltiazem drip as well last cisco and part of night. Rates ranging 83-115, with average in 90s currently. He denies heart palpitations currently. Echo showed EF 50-55%, normal valves and RV. No clinical signs of acute HF. BP is running low with systollc in the 90s. Will change Propranolol to 60 mg bid and Continue Digoxin at 0.125 mg daily. If rates remain adequately controlled, he may be discharged. If rates become more elevated with activity today, then further med management may be needed. Ongoing tele monitoring at this time. Continue Eliquis for anticoagulation. Ongoing management of his hyperthyroid state. Once discharged, we will arrange for outpt cardiology follow up. <THOMAS Bonner - Last Filed: 06/14/22 09:19> [place] [facility] [place]. Found to have new atrial fibrillation with RVR, thyroidtoxicosis. Treated with heart rate control and anticoagulation. For his hyperthyroid, he was started on Methimazole. For heart rate he is on Propranolol and was given an IV Digoxin load yesterday. He was on Diltiazem drip as well last cisco and part of night. Rates ranging 83-115, with average in 90s currently. He denies heart palpitations currently. Echo showed EF 50-55%, normal valves and RV. No clinical signs of acute HF. BP is running low with systollc in the 90s. Will change Propranolol to 60 mg bid and Continue Digoxin at 0.125 mg daily. If rates remain adequately controlled, he may be discharged. If rates become more elevated with activity today, then further med management may be needed. Ongoing tele monitoring at this time. Continue Eliquis for anticoagulation. Ongoing management of his hyperthyroid state. Once discharged, we will arrange for outpt cardiology follow up. Patient seen and examined. Case discussed with Stella. Patient has heart rate is better controlled however overnight was still elevated and was on IV Cardizem drip which was held. This morning heart rate in 90s. Patient has no symptoms. Switch to propranolol 60 mg b.i.d. and add digoxin 0.125 mg daily for rate control. Continue to control is hyperthyroidism. Continue full oral anticoagulation with Eliquis. Ambulate today. Discussed with patient about importance of compliance with medication and directions. He says he understands. Heart rate remains controlled by tomorrow can be discharged and will follow-up as outpatient. Will sign of the case today. <Barney Viramontes MD - Last Filed: 06/14/22 09:48> (2) Thyrotoxicosis: Status: Acute <THOMAS Bonner - Last Filed: 06/14/22 09:19> Assessment and Plan: Ongoing eval and treatment. <THOMAS Bonner - Last Filed: 06/14/22 09:19> (3) New onset atrial fibrillation: Status: Acute <THOMAS Bonner - Last Filed: 06/14/22 09:19> Time Spent With Patient Time: Total time spent is greater than 50% in coordination of care (as documented) at patient's floor/unit and/or counseling patient: 22 <THOMAS Bonner - Last Filed: 06/14/22 09:19> Progress Note: Quality Stroke Does the patient have a stroke diagnosis?: No <THOMAS Bonner - Last Filed: 06/14/22 09:19> Procedures Date of Service Date of Service: 06/14/22 <THOMAS Bonner - Last Filed: 06/14/22 09:19>
[2022-06-14] MEDS: Propranolol HCL 20 MG TABLET PO (10:15)
--- NOTE | 2022-06-14 10:55 | MHC.CM.PN ---
Per ROUNDS discussion, Patient is not yet medically cleared for dc (Still Tachycardic, IV Diltiazem, Tele monitoring); PT is recommending STR and CM will continue to follow.
[2022-06-14 11:41] VITALS: BP 111/61; PULSE 98; RESP 18; TEMP 36.7; O2SAT 95
--- NOTE | 2022-06-14 12:15 | HO.PM.IMPN ---
Subjective Subjective Date of Service: 06/14/22 Interval History: Seen and evaluated this morning still confused but overall controlled Responded to redirection and agreed to continue treatment heart rate remains elevated 90s to 120 No reported overnight events Review of Systems No fever, chills Improved generalized weakness No chest pain, reports not feeling palpitations No shortness of breath or coughing No abdominal pain, nausea or vomiting No urinary symptoms No any rash or wounds Physical Exam Vital Signs: Vital Signs: Last Vital Signs Temp 98.1 F 06/14/22 11:41 Pulse 98 06/14/22 11:41 Resp 18 06/14/22 11:41 BP 111/61 06/14/22 11:41 Pulse Ox 95 06/14/22 11:41 O2 Del Method 06/14/22 11:41 BMI result Body Mass Index 24.4 Const: Other: Constitutional : Alert, interactive, not in distress Neck : Normal inspection, Supple Cardiovascular : Irregular irregular, no JVP, no lower extremity edema, tachycardia Respiratory : fair bilateral air entry, no crackles, wheezes or rhonchi Gastrointestinal: soft, lax, Normal bowel sounds, Non tender Skin : Warm, Dry Neurological : Alert & disoriented, No focal deficit , CN 2-12 within normal Objective Data Active Medications Acetaminophen (Acetaminophen 325 Mg Tablet) 650 mg PO Q6H PRN PRN Reason: Pain, Mild (Pain Scale 1-3) Apixaban (Apixaban 5 Mg Tablet) 5 mg PO BID [facility] Last Admin: 06/14/22 08:38 Dose: 5 mg Documented By: CHRISTIANO Digoxin (Digoxin 0.125 Mg Tablet) 0.125 mg PO DAILY [facility] Docusate Sodium (Docusate Sodium 100 Mg Capsule) 100 mg PO BID [facility] Last Admin: 06/14/22 08:38 Dose: 100 mg Documented By: CHRISTIANO Diltiazem HCl 125 mg/ Sodium (Chloride) 125 mls @ 0 mls/hr IVCONT .Q0M [facility]; Protocol Last Titration: 06/14/22 05:04 Dose: 0 mg/hr, 0 mls/hr Documented By: SOLA Methimazole (Methimazole 10 Mg Tablet) 10 mg PO TID [facility] Last Admin: 06/14/22 08:38 Dose: 10 mg Documented By: CHRISTIANO Omeprazole (Omeprazole 20 Mg Capsule.) 20 mg PO BID [facility] Last Admin: 06/14/22 08:38 Dose: 20 mg Documented By: CHRISTIANO Ondansetron HCl (Ondansetron Hcl 4 Mg/2 Ml Vial) 4 mg IVPUSH Q8H PRN PRN Reason: Nausea and Vomiting Last Admin: 06/10/22 20:01 Dose: 4 mg Documented By: JYOTI Pharmacy Consult (Consult Rx Perform Med Rec) 1 each MISCELLANE ONCE PRN PRN Reason: Consult order Propranolol HCl (Propranolol Hcl 20 Mg Tablet) 60 mg PO BID [facility]; Protocol Quetiapine Fumarate (Quetiapine Fumarate 25 Mg Tablet) 25 mg PO ONCE PRN PRN Reason: anxiety/restlessness Last Admin: 06/13/22 17:19 Dose: 25 mg Documented By: DIAZDEChristi Sodium Bicarbonate (Sodium Bicarbonate 650 Mg Tablet) 650 mg PO BID [facility] Last Admin: 06/14/22 08:38 Dose: 650 mg Documented By: CHRISTIANO Sodium Chloride (0.9 % Sodium Chloride Flush 3 Ml Syringe) 3 ml IVFLUSH QSHIFT [facility] Last Admin: 06/14/22 08:39 Dose: Not Given Documented By: CHRISTIANO Non-Admin Reason: No Access Tamsulosin HCl (Tamsulosin Hcl 0.4 Mg Capsule) 0.4 mg PO DAILY [facility] Last Admin: 06/14/22 08:38 Dose: 0.4 mg Documented By: CHRISTIANO Tramadol HCl (Tramadol Hcl 50 Mg Tablet) 100 mg PO TID [facility] Last Admin: 06/14/22 08:38 Dose: 100 mg Documented By: CHRISTIANO Vitamin D (Cholecalciferol (Vitamin D3) 25 Mcg Tablet) 25 mcg PO DAILY [facility] Last Admin: 06/14/22 08:38 Dose: 25 mcg Documented By: CHRISTIANO Labs CBC & Chem 7: 06/13/22 08:51 06/14/22 06:59 Labs: Laboratory Results - last 24 hr 06/12/22 06/13/22 06/14/22 15:48 18:29 06:59 Anion Gap 16 Estim Creat Clear Calc 49.4 Estimated GFR 56 Random Glucose 93 Calcium 9.4 Free T4 2.45 H Thyroglobulin 78.8 H Thyroglobulin Antibody <1 Thyroid Peroxidase Ab 213 H Assessment and Plan (1) Atrial fibrillation with RVR: Status: Acute (2) Acute metabolic encephalopathy: Status: Acute (3) Thyrotoxicosis: Status: Acute (4) New onset atrial fibrillation: Status: Acute Plan A 77 years old male with PMH of back pain, BPH, GERD, COPD who presents to the hospital complaining of weakness for the last week or so. New muscle atrial fibrillation with RVR heart rate improved overnight was still having runs of tachycardia echo showing EF of 50-55% Eliquis as blood thinner Keep on telemetry Cardiology input appreciated , start Digoxin, increase propranolol Discontinue Cardizem drip continue daily digoxin change propranolol to 60 mg b.i.d. Thyrotoxicosis New diagnosis repeated free T4 of 2.4, pending T3 and free T3 on propranolol for rate control and decrease conversion continue Methimazole as antithyroid elevated thyroglobulin at 78.8 , thyroid peroxidase Ab to 213 increasing the possibility of Darrius thyroiditis/Graves disease thyroglobulin antibody negative Pending TSH receptor antibody plan discussed with Endocrinology, to recheck total T3, free T4 in 2 days. Increase methimazole to 20 mg t.i.d.. Will need to check with Endocrinology before discharging the patient for a follow-up plan Endocrinology suggested transferring the patient to a tertiary hospital given risk of thyroid storm as he might need surgical removal of the thyroid gland before being discharged. Contacting ([facility], [facility]) no beds available, [facility] pending response metabolic encephalopathy Likely secondary to inpatient delirium, thyrotoxicosis Recurrent redirection Small dose of Seroquel for now Lung nodule Two nodules Noticed on CXR to be followed as outpatient with CT scan GERD continue omeprazole BPH Tamsulosin DVT PPX Eliquis The patient will likely need Overnight hospital stay for evaluation and treatment of a new onset AFib with RVR and thyrotoxicosis to prevent possible decompensation into heart failure. Quality Stroke Does the patient have a stroke diagnosis?: No VTE Prior VTE?: No VTE Risk Level:: Medical - moderate - high VTE Device Contraindication: Treatment Not Indicated VTE Drug Contraindication: N/A - Med Ordered
--- NOTE | 2022-06-14 14:57 | PM.DS ---
DS: Providers Provider Date of Service: 06/22/22 Date of admission: 06/10/22 17:28 Primary care physician: Unknown Physician Consults: 06/10/22 17:27 Consult to Cardiology Routine Consulting Provider: Martinez Solis Reason for consultation: new onset Afib w RvR DS: Diagnosis Discharge Diagnosis (1) Atrial fibrillation with RVR: Status: Acute (2) Acute metabolic encephalopathy: Status: Acute (3) Thyrotoxicosis: Status: Acute (4) New onset atrial fibrillation: Status: Acute (5) Delirium: Status: Acute DS: Summary Hospital Course Hospital Course: Admission note HPI A 77 years old male with PMH of back pain, BPH, GERD, COPD who presents to the hospital complaining of weakness for the last 2-3 weeks or so.? Reported history of a upper respiratory infection around that time. not the best historian The patient reported that he has not been feeling his self for the last week or longer as he became more tired and having no energy.? He was able to take care of his basic needs with for the last 2 days his weakness became too much as he was unable to leave his bed that often.? He was brought to the emergency by his daughter.? Denies any fever, chills, headache, double vision, chest pain, palpitation, abdominal pain, nausea, vomiting, change in bowel habit or urinary symptoms.? In the emergency he was found to have new onset atrial fibrillation with rapid ventricular response.? Started on IV Cardizem drip as metoprolol IV pushes did not help controlling the heart rate.? Will be admitted for further evaluation and treatment. Hospital course the patient was admitted to the hospital for evaluation of weakness. Found to be new onset atrial fibrillation with rapid ventricular response. New muscle atrial fibrillation with RVR Started on Cardizem drip. Noticed to have thyrotoxicosis so medication was changed to Beta-sherin. Dose of propranolol was increased to 60 b.i.d. with fair control. heart rate? improved overnight after addition of digoxin As he was evaluated by Cardiology.was still having runs of tachycardia Rate around 100. echo showing EF of 50-55%. Eliquis as blood thinner Was started with good tolerance. currently on daily digoxin and propranolol 60 mg b.i.d. Thyrotoxicosis evidence of TSH of <0.01 at admission with elevated free T4 at 3 and T3 add 252. Started on methimazole 10 mg t.i.d. after discussing with publication specialist( outpatient). metoprolol added for rate control and decrease conversion. Repeated free T3 of 2.4, repeated T3 still pending. ? Methimazole dose was increased to 20 mg t.i.d. as repeated T3 remained elevated. ?elevated thyroglobulin at 78.8 , thyroid peroxidase Ab to 213 increasing the possibility of Darrius thyroiditis/Graves disease ?thyroglobulin antibody negative Pending TSH receptor antibody Discussed was outpatient Endocrinology who recommended to Increase methimazole to 20 mg t.i.d and recheck? total T3, free T4 in 2 days.? suggested transferring the patient to a tertiary center given risk of thyroid storm as he might need surgical removal of the thyroid gland before being discharged. BWPS score of 25-35 suggestive of impending thyroid storm. ?metabolic encephalopathy developed during the hospital stay around a 3Likely secondary to inpatient delirium, thyrotoxicosis And impending thyroid stone. Recurrent redirection and small dose of Seroquel for now As needed ?Lung nodule Two nodules Noticed on CXR to be followed as outpatient with CT scan Time Spent with Patient Time attestation: Total time spent providing and/or coordinating discharge services: Discharge coordination time: Greater than 30 minutes Quality: Safe Use of Opioids Does Pt have an Active Cancer Diagnosis on the Problem List?: No Quality: Stroke Does the patient have a stroke diagnosis?: No Physical Exam Vital Signs: Vital Signs: Last Vital Signs Temp 98.1 F 06/14/22 11:41 Pulse 98 06/14/22 11:41 Resp 18 06/14/22 11:41 BP 111/61 06/14/22 11:41 Pulse Ox 95 06/14/22 11:41 O2 Del Method 06/14/22 11:41 BMI result Body Mass Index 24.4 Const: Other: Constitutional : Alert, interactive, not in distress Neck : Normal inspection, Supple Cardiovascular : Irregular irregular, no JVP, no lower extremity edema, tachycardia Respiratory : fair bilateral air entry, no crackles, wheezes or rhonchi Gastrointestinal: soft, lax, Normal bowel sounds, Non tender Skin : Warm, Dry Neurological : Alert & disoriented to time and place, No focal deficit , CN 2-12 within normal DS: Data Data Completed and Pending Labs on day of discharge: Laboratory Results - last 24 hr 06/12/22 06/13/22 06/14/22 15:48 18:29 06:59 Sodium 140 Potassium 4.2 Chloride 102 Carbon Dioxide 26 Anion Gap 16 BUN 35 H Creatinine 1.25 Estim Creat Clear Calc 49.4 Estimated GFR 56 Random Glucose 93 Calcium 9.4 Free T4 2.45 H Thyroglobulin 78.8 H Thyroglobulin Antibody <1 Thyroid Peroxidase Ab 213 H Preliminary micro results at discharge 06/10/22 11:45 Blood Culture - Preliminary Blood - Venous No growth after 48 hours. 06/10/22 11:45 Blood Culture - Preliminary Blood - Venous No growth after 48 hours. Imaging Chest x-ray: Radiologist's impression: ITS Impressions Chest X-Ray 06/10/22 13:55 IMPRESSION: Hyperinflated lungs without acute process. Suspect 2 pulmonary nodules in the left hemithorax. Recommend CT chest correlation. No acute intracranial process seen. Age-related cerebral volume loss with chronic small vessel ischemic changes Head CT 06/10/22 14:02 IMPRESSION: Hyperinflated lungs without acute process. Suspect 2 pulmonary nodules in the left hemithorax. Recommend CT chest correlation. No acute intracranial process seen. Age-related cerebral volume loss with chronic small vessel ischemic changes Thyroid Ultrasound 06/11/22 09:25 IMPRESSION: Normal-sized thyroid gland with slight parenchymal heterogenicity and normal vascularity. Single solid TI-RADS category 3 nodule in the right thyroid lobe. A follow-up ultrasound is advised per below. ACR TI-RADS RECOMMENDATION REFERENCE: Ultrasound-guided fine-needle aspiration, followup ultrasound, no further follow up. * TR1 (0 point) and TR 2 (2 points): No FNA or follow up * TR3 (3 points): FNA if more than or equal to 2.5 cm in maximum dimension, followup ultrasound in 1, 3 and 5 years if 1.5 to 2.4 cm in maximum dimension. * TR4 (4-6 points): FNA if more than or equal to 1.5 cm in maximum dimension, followup ultrasound in 1, 2, 3 and 5 years if 1 to 1.4 cm in maximum dimension. * TR5 (more than or equal to 7 points): FNA if more than or equal to 1 cm in maximum dimension, followup ultrasound every year for 5 years if 0.5 to 0.9 cm in maximum dimension. * TR3, TR4 or TR5 nodules that are below the size threshold for follow up receive no follow up. Discharge Plan Discharge Anticipated Discharge Date/Time: 06/14/22 17:16 Patient Disposition: Xfer Acute Care Hospital Discharge Diagnosis: new onset atrial fibrillation with RVR Thyrotoxicosis Metabolic encephalopathy Referrals: Physician,Unknown J [Physician] - 1 Week Discharge Medications: New Eliquis 5 mg Tablet 5 mg PO BID 1 Days Qty: 1 0RF digoxin 125 mcg (0.125 mg) Tablet 125 mcg PO DAILY 1 Days Qty: 1 0RF methimazole 10 mg Tablet 20 mg PO TID 1 Days Qty: 6 0RF propranolol 20 mg Tablet 60 mg PO BID 1 Days Qty: 1 0RF Protocol: Hold for SBP/HR < HOLD for SBP < : 90 HOLD for HR < : 60 Continued tramadol 50 mg tablet 2 tab PO TID tamsulosin 0.4 mg capsule 1 cap PO DAILY omeprazole 20 mg capsule,delayed release(DR/EC) 1 cap PO BID fluticasone propionate [Flovent HFA] 220 mcg/actuation HFA aerosol inhaler 1 puff PO BID albuterol sulfate 90 mcg/actuation HFA aerosol inhaler 2 puff PO QID PRN (Reason: Wheezing) naproxen 500 mg tablet 1 tab PO BID PRN (Reason: pain) cholecalciferol (vitamin D3) 25 mcg (1,000 unit) tablet 1 tab PO DAILY Discharge Orders: Discharge Order (Routine); Ordered 06/14/22 Ordered By: David Pitt Diet: Advance to usual diet Activity on Discharge: As tolerated Stand Alone Forms: Patient Portal Discharge page Care Plan Goals: Read below Health Concerns: Read below Plan of Treatment: Read below Assessment: new onset atrial fibrillation secondary to thyrotoxicosis. Treated with rate control and antithyroid medications. Endocrinology suggested transfer to a tertiary center for further management. Discharge Date/Time: 06/14/22 21:09
[2022-06-14 15:16] VITALS: BP 97/64; PULSE 101; RESP 18; TEMP 36.2; O2SAT 98
[2022-06-14] MEDS: 0.9 % Sodium Chloride Flush 3 ML SYRINGE IVFLUSH ×2 (15:50→20:34)
[2022-06-14] MEDS: methIMAzole 10 MG TABLET 20 MG PO ×2 (15:50→20:30)
[2022-06-14 19:32] VITALS: BP 103/64; PULSE 64; RESP 18; TEMP 36; O2SAT 98
[2022-06-14 20:28] VITALS: BP 126/67; PULSE 107
[2022-06-14] MEDS: Propranolol HCL 20 MG TABLET 60 MG PO (20:30)
[2022-06-15 16:52] LABS: Triiodothyronine T3 Free 8.1 pg/mL (2.3-4.2); Triiodothyronine T3 Total 207 ng/dL (76-181)
[2022-06-16 21:26] LABS: Thyrotropin Receptor Antibody 4.12 IU/L (<=2.00)
== END 2022-06-14 21:09 | disposition short-term general hospital (02) | DRG 643 ==
LOC: HO.ED 14:24 → HO.EDOVER 17:34 → HO.IMC 06-11 16:29
PROVIDERS: Physician Assistant Medical; Admitting Provider Student in an Organized Health Care Education/Training Program; Emergency Provider Student in an Organized Health Care Education/Training Program; PCP Pediatrics; Visit Provider Student in an Organized Health Care Education/Training Program
DX: E05.90 Thyrotoxicosis, unspecified without thyrotoxic crisis or storm (principal); G93.41 Metabolic encephalopathy; F05 Delirium due to known physiological condition; I48.91 Unspecified atrial fibrillation; J44.9 Chronic obstructive pulmonary disease, unspecified; K21.9 Gastro-esophageal reflux disease without esophagitis; R91.8 Other nonspecific abnormal finding of lung field; N40.0 Benign prostatic hyperplasia without lower urinary tract symptoms; Z20.822 Contact with and (suspected) exposure to COVID-19; Z87.891 Personal history of nicotine dependence; Z79.01 Long term (current) use of anticoagulants; Z79.51 Long term (current) use of inhaled steroids; Z79.899 Other long term (current) drug therapy
CPT/HCPCS: 36415; 70450; 71046; 76536; 80048; 80053; 81001; 83520; 83605; 83735; 83880; 84432; 84439; 84443; 84480; 84481; 84484; 85025; 85027; 85610; 85730; 86376; 86800; 87040; 87502; 87635; 93005; 93306; 96361; 96365; 96375; 96376; 97162; 99285; J1160; J1940; J2405; J3475

== ENCOUNTER 2023-07-13 10:14 | Outpatient (REF) | payer MEDICARE, SELFPAY ==
[2023-07-13 14:16] LABS: MANUAL DIFF FLAG NO
[2023-07-13 14:26] LABS: Basophils Absolute Auto 0.1 X10*3/uL (0.0-0.2); Basophils Percent Auto 0.6 % (0-2); Eosinophils Absolute Auto 0.3 X10*3/uL (0.0-0.4); Eosinophils Percent Auto 4.1 % (0-4); Hematocrit 39.6 % (42.0-52.0); Hemoglobin 12.5 g/dl (14.0-18.0); Imm Gran Abs Auto 0.04 X10*3/uL (0.00-0.03); Imm Gran Pct Auto 0.5 % (0.0-0.4); Lymphocytes Absolute Auto 1.6 X10*3/uL (1.2-4.9); Lymphocytes Percent Auto 19.7 % (20-40); Mean Corpuscular HGB Conc 31.6 g/dl (31.0-36.0); Mean Corpuscular Hemoglobin 27.7 pg (27.0-33.0); Mean Corpuscular Volume 87.6 fL (80.0-98.0); Mean Platelet Volume 11.7 fL (9.4-12.4); Monocytes Absolute Auto 0.8 X10*3/uL (0.1-1.2); Monocytes Percent Auto 9.4 % (2-11); Neutrophils Absolute Auto 5.4 x10*3/uL (2.0-8.3); Neutrophils Percent Auto 65.7 % (45-73); Platelet Count 270 X10*3/uL (160-400); Red Blood Count 4.52 X10*6/uL (4.60-5.80); Red Cell Distribution Width 14.7 % (11.0-16.0); White Blood Count 8.2 X10*3/uL (4.8-10.8)
[2023-07-13 14:52] LABS: Alanine Aminotransferase 13 U/L (0-40); Albumin Level 4.2 g/dL (3.5-5.0); Alkaline Phosphatase 88 U/L (39-117); Aspartate Amino Transferase 14 U/L (5-37); Bilirubin Direct 0.2 mg/dL (0.0-0.5); Bilirubin Total 0.5 mg/dL (0.0-1.0); Total Protein 7.1 g/dL (6.5-8.0)
[2023-07-13 15:11] LABS: Vitamin B12 347 pg/mL (200-900)
== END 2023-07-13 10:15 | disposition home or self-care (01) ==
LOC: HO.CHCLDS 10:14
PROVIDERS: Visit Provider Pediatrics
DX: F10.21 Alcohol dependence, in remission (principal)
CPT/HCPCS: 36415; 80076; 82607; 85025

== ENCOUNTER 2024-01-11 11:45 | Outpatient (REF) | payer MEDICARE, SELFPAY ==
[2024-01-11 14:20] LABS: MANUAL DIFF FLAG NO
[2024-01-11 14:23] LABS: Basophils Absolute Auto 0.1 X10*3/uL (0.0-0.2); Basophils Percent Auto 0.8 % (0-2); Eosinophils Absolute Auto 0.5 X10*3/uL (0.0-0.4); Eosinophils Percent Auto 4.8 % (0-4); Hematocrit 40.4 % (42.0-52.0); Hemoglobin 12.9 g/dl (14.0-18.0); Imm Gran Abs Auto 0.09 X10*3/uL (0.00-0.03); Imm Gran Pct Auto 0.9 % (0.0-0.4); Lymphocytes Absolute Auto 2.3 X10*3/uL (1.2-4.9); Lymphocytes Percent Auto 23.3 % (20-40); Mean Corpuscular HGB Conc 31.9 g/dl (31.0-36.0); Mean Corpuscular Hemoglobin 28.2 pg (27.0-33.0); Mean Corpuscular Volume 88.4 fL (80.0-98.0); Mean Platelet Volume 10.5 fL (9.4-12.4); Monocytes Absolute Auto 0.7 X10*3/uL (0.1-1.2); Monocytes Percent Auto 7.3 % (2-11); Neutrophils Absolute Auto 6.2 x10*3/uL (2.0-8.3); Neutrophils Percent Auto 62.9 % (45-73); Platelet Count 389 X10*3/uL (160-400); Red Blood Count 4.57 X10*6/uL (4.60-5.80); White Blood Count 9.8 X10*3/uL (4.8-10.8)
[2024-01-11 14:41] LABS: Estimated Average Glucose 100 mg/dL; Hemoglobin A1c % 5.1 % (<6.0)
[2024-01-11 15:02] LABS: Alanine Aminotransferase 11 U/L (0-40); Albumin Level 4.2 g/dL (3.5-5.0); Alkaline Phosphatase 124 U/L (39-117); Anion Gap 20 (12-20); Aspartate Amino Transferase 14 U/L (5-37); Bilirubin Total 0.4 mg/dL (0.0-1.0); Blood Urea Nitrogen 25 mg/dL (9-16); Calcium 10.2 mg/dL (8.4-10.2); Carbon Dioxide 27 mmol/L (22-29); Chloride 101 mmol/L (96-108); Estimated Glomerular Filt Rate 53; Glucose Random 91 mg/dL (60-115); Potassium 4.8 mmol/L (3.3-5.1); Sodium 143 mmol/L (135-145)
[2024-01-11 15:14] LABS: PSA,Total (Free>4and<10) 9.54 ng/mL (0.00-4.00)
[2024-01-11 15:18] LABS: TSH reflex Free T4 0.27 uIU/mL (0.32-4.0)
[2024-01-11 15:26] LABS: Folate 8.4 ng/mL (> or = 4.0); Vitamin B12 620 pg/mL (200-900)
[2024-01-11 16:37] LABS: Free T4 (Free Thyroxine) 0.85 ng/dL (0.71-1.85)
[2024-01-14 10:28] LABS: Percent Free Prostate Spec Ag NOT CALCULATED % (calc) (>25); Prostate Specific Ag Total 14.1 ng/mL (< OR = 4.0)
== END 2024-01-11 11:46 | disposition home or self-care (01) ==
LOC: HO.CHCLDS 11:45
PROVIDERS: Visit Provider Pediatrics
DX: R63.4 Abnormal weight loss (principal); N40.0 Benign prostatic hyperplasia without lower urinary tract symptoms; Z12.5 Encounter for screening for malignant neoplasm of prostate
CPT/HCPCS: 36415; 80053; 82607; 82746; 83036; 84153; 84154; 84439; 84443; 85025

== ENCOUNTER 2024-01-31 13:31 | Outpatient (AMB) | payer MEDICARE, SELFPAY ==
--- NOTE | 2024-01-31 13:33 | A.OFFVIS_ITS ---
Intake Intake Visit Reasons: New pt-Elevated PSA Intake Note: NEW Patient presents today to established treatment for Elevated PSA: PSA Results 9.54 ng/mL, 01/11/2024. Meds- Tamsulosin Allergies to Antibiotic- No Known Allergies Blood Thinner- Eliquis Home Health Clinical Liaison Required: No Accompanied by: Self / Same As Patient Allergies No Known Allergies Allergy (Verified 01/31/24 13:38) Medication List - Last Reconciled 01/31/24 by Marcial Tyler MD albuterol sulfate 90 mcg/actuation 2 puffs PO QID PRN apixaban (Eliquis) 5 mg PO BID 1 day cholecalciferol (vitamin D3) 1 tab PO DAILY digoxin 125 mcg PO DAILY 1 day finasteride (Proscar) 5 mg PO DAILY 90 days fluticasone propionate 220 mcg/actuation (Flovent HFA) 1 puff PO BID methimazole 20 mg (2 x 10 mg) PO TID 1 day naproxen 1 tab PO BID PRN omeprazole 1 cap PO BID pantoprazole 40 mg PO DAILY propranolol ER 60 mg PO DAILY tamsulosin 1 cap PO DAILY tramadol 2 tabs PO TID HPI HPI Comments History of Present Illness Details Kei is an 78-year-old male presents for telehealth visit, for elev ated PSA. The patient was seen by his primary for routine checkup and complained of about 15 lb weight loss. He is on tamsulosin for BPH, denies dysuria or gross hematuria. Former smoker. He states he has a sister who is 85 and doing okay. He does not remember any specific cancers in his family. He is on Eliquis. Review of blood work 01/11/2024 PSA 9.54 and 01/11/2024 at another lab PSA 14.1 I have discussed risks and benefits of prostate biopsy as he is on the Eliquis. Risks to include but not limited to pain, bleeding, blood in the urine and semen, septicemia, need to repeat biopsy. I want to hold on biopsy for now and start finasteride 5 mg daily. I will check an ultrasound of the urinary tract and repeat PSA in 8-10 weeks. [facility] Medical History GERD (gastroesophageal reflux disease) COPD (chronic obstructive pulmonary disease) Social History Household Members: None Housing: Apartment Do you presently have visiting nurse or other home services: No Alcohol intake: former Patient Tobacco Use Status: Former Tobacco user Substance Use Type: Marijuana service: No Current occupational status: retired Review of Systems Const All systems reviewed & are unremarkable except as noted in HPI and below Reports no additional complaints Eyes Reports no additional complaints ENT Reports no additional complaints Card Reports no additional complaints Resp Reports no additional complaints GI Reports no additional complaints Reports as per HPI Musc Reports no additional complaints Neuro Reports no additional complaints Psych Reports no additional complaints Endo Reports no additional complaints Osvaldo/Lymph Reports no additional complaints Aller/Immun Reports no additional complaints Assessment & Plan Assessment & Plan (1) Elevated PSA: Code(s): R97.20 - Elevated prostate specific antigen [PSA] (2) BPH loc w urin obs/LUTS: Code(s): N40.1 - Benign prostatic hyperplasia with lower urinary tract symptoms Plan Repeat PSA in 8 weeks Ultrasound retroperitoneum, complete Follow-up in 10 weeks, possible cystoscopy at that time. Orders: Orders US retroperitoneal comp Today N40.1 - Benign prostatic hyperplasia with lower urinary tract symptoms, R97.20 - Elevated prostate specific antigen [PSA] Medications: New finasteride (Proscar) 5 mg PO DAILY 90 days 90 tabs 3RF C61 - Malignant neoplasm of prostate Telehealth Telehealth Location of provider rendering services: practice address Location of patient: address on file Patient Identification confirmed using: Name, : Yes Telehealth method: voice only Patient verbally consented to treatment: Yes Patient verbally consented to billing insurance company: Yes Patient informed of any privacy concerns related to visit: Yes Minutes spent on Phone/Video with Pt.: 18 Coding Level of Care Code Tele New Pt Level 3 (28110) Diagnoses Elevated PSA R97.20 BPH loc w urin obs/LUTS N40.1
== END 2024-01-31 14:22 | disposition home or self-care (01) ==
LOC: HO.HUSH 13:31
PROVIDERS: PCP Pediatrics; Visit Provider Urology
DX: R97.20 Elevated prostate specific antigen [PSA] (principal); N40.1 Benign prostatic hyperplasia with lower urinary tract symptoms
CPT/HCPCS: 99442

== ENCOUNTER → 2024-01-31 13:31 | Outpatient (BNVA) | payer MEDICARE, SELFPAY | PROVIDERS: PCP Pediatrics; Visit Provider Urology ==

== ENCOUNTER 2024-03-31 13:28 | Outpatient (REF) | payer MEDICARE, SELFPAY ==
--- NOTE | ~2024-03-31 | US_ITS ---
EXAMINATION: US RETROPERITONEAL LIMITED (RENAL ONLY) CLINICAL INFORMATION: Benign prostatic hyperplasia with lower urinary tract symptoms. COMPARISON: X-ray [facility] 10/23/2012. TECHNIQUE: Real-time imaging of the kidneys. Limited visualization due to bowel gas. FINDINGS: RIGHT KIDNEY: 9.9 x 4.4 x 4.2 cm (SAG x AP x TRV). No hydronephrosis. No renal calculi. Renal cortical thickness is normal. Limited visualization. Right renal pole 1.2 cm cyst with benign features. There is no indication for follow-up imaging. LEFT KIDNEY: 10.9 x 5.3 x 4.9 cm (SAG x AP x TRV). No hydronephrosis. No renal calculi. Renal cortical thickness is normal. Limited visualization. US/US retroperitoneal limited IMPRESSION: No hydronephrosis. No renal calculi.
== END 2024-03-31 13:29 | disposition home or self-care (01) ==
LOC: HO.US 13:28
PROVIDERS: PCP Pediatrics; Visit Provider Urology
DX: N40.1 Benign prostatic hyperplasia with lower urinary tract symptoms (principal); R97.20 Elevated prostate specific antigen [PSA]
CPT/HCPCS: 76775

== ENCOUNTER 2024-07-31 09:56 | Outpatient (REF) | payer MEDICARE, SELFPAY ==
--- NOTE | ~2024-07-31 | XR_ITS ---
EXAMINATION: XR CHEST CLINICAL INFORMATION: Edema of lower limb. COMPARISON: June 10, 2022. TECHNIQUE: 2 views of the chest were obtained. FINDINGS: No focal infiltrate identified. Mild blunting the costophrenic angles, raising suspicion for COPD. No significant abnormality is noted involving the heart, bony thorax or soft tissues. Heart normal in size. Mild atherosclerotic aorta. XR/XR chest 2V IMPRESSION: No acute finding. Electronically signed by: Ubaldo Carter MD 07/31/2024 12:18 PM EDT
== END 2024-07-31 09:57 | disposition home or self-care (01) ==
LOC: HO.HHCX 09:56
PROVIDERS: Visit Provider Internal Medicine
DX: R60.0 Localized edema (principal)
CPT/HCPCS: 71046

== ENCOUNTER 2024-08-05 14:08 | Outpatient (REF) | payer MEDICARE, SELFPAY ==
[2024-08-05 18:06] LABS: MANUAL DIFF FLAG NO
[2024-08-05 18:56] LABS: Basophils Absolute Auto 0.1 X10*3/uL (0.0-0.2); Basophils Percent Auto 0.7 % (0-2); Eosinophils Absolute Auto 0.2 X10*3/uL (0.0-0.4); Eosinophils Percent Auto 3.2 % (0-4); Hematocrit 35.1 % (42.0-52.0); Hemoglobin 11.3 g/dl (14.0-18.0); Imm Gran Abs Auto 0.03 X10*3/uL (0.00-0.03); Imm Gran Pct Auto 0.4 % (0.0-0.4); Lymphocytes Absolute Auto 1.6 X10*3/uL (1.2-4.9); Lymphocytes Percent Auto 23.6 % (20-40); Mean Corpuscular HGB Conc 32.2 g/dl (31.0-36.0); Mean Corpuscular Hemoglobin 27.4 pg (27.0-33.0); Monocytes Absolute Auto 0.7 X10*3/uL (0.1-1.2); Monocytes Percent Auto 10.2 % (2-11); Neutrophils Absolute Auto 4.3 x10*3/uL (2.0-8.3); Neutrophils Percent Auto 61.9 % (45-73); Platelet Count 348 X10*3/uL (160-400); Red Blood Count 4.13 X10*6/uL (4.60-5.80); Red Cell Distribution Width 15.5 % (11.0-16.0); White Blood Count 6.9 X10*3/uL (4.8-10.8)
[2024-08-05 18:59] LABS: Alanine Aminotransferase 12 U/L (0-40); Alkaline Phosphatase 77 U/L (39-117); Aspartate Amino Transferase 15 U/L (5-37); Bilirubin Direct 0.1 mg/dL (0.0-0.5); Bilirubin Total 0.3 mg/dL (0.0-1.0); Total Protein 7.2 g/dL (6.5-8.0)
[2024-08-05 19:09] LABS: Appearance Urine Clear; Color Urine Yellow; Glucose Urine UA Negative (Negative); Leukocyte Esterase Urine Negative (Negative); Nitrite Urine Negative (Negative); Specific Gravity - Urine 1.015 (1.005-1.025); Urine Blood Negative (Negative); Urine Ketones Negative (Negative); Urine Protein Negative (Neg-Trace)
[2024-08-05 19:13] LABS: Bacteria Urine None Seen (None Seen); Hyaline Casts Urine 0-2 /LPF (0-2); RBC Urine 0-2 /HPF (0-2); Squamous Epithelial Cell Urine 0-2 /HPF (0-2); WBC Urine 0-5 /HPF (0-5)
[2024-08-05 19:16] LABS: Erythrocyte Sedimentation Rate 14 MM/HR (0-15)
== END 2024-08-05 14:09 | disposition home or self-care (01) ==
LOC: HO.CHCLDS 14:08
PROVIDERS: Visit Provider Pediatrics
DX: M25.572 Pain in left ankle and joints of left foot (principal); Z23 Encounter for immunization
CPT/HCPCS: 36415; 80076; 81001; 84550; 85025; 85652

== ENCOUNTER → 2024-08-19 12:53 | Outpatient (REF) | payer MEDICARE, OTHER, SELFPAY ==
--- NOTE | 2024-08-19 13:02 | CA_ITS ---
Transthoracic Echocardiogram Patient (Last, First, Middle): Kei Kate, Gender: Male Date of : 1945 Age: 79 Procedure Date: 08/19/2024 Procedure Type: Transthoracic Echocardiogram Location: OP Height: 177.8 cm Weight: 77.11 kg BSA: 1.95 m2 Heart Rate: bpm BP: 132 / 70 mmHg Picture Hanger: Referring MD: Severo Hensley MD Wardrobe Technician: Barney Viramontes MD Symptoms: LOCALIZED EDEMA Study Quality: Fair w Contrast ECG Rhythm: Sinus Conclusions: - 1. Normal LV ejection fraction 55-60% with impaired relaxation filling pattern 2. Cardiac valvular structures was not well-visualized but cardiac valvular Dopplers within normal limits 3. Normal RV systolic pressure Findings Procedure Information Contrast agent, definity, is being given per protocol without apparent complications. Left Ventricle Normal left ventricular size, thickness, and systolic function. The visually estimated ejection fraction is between 55-60%. Spectral Doppler is indicative of an impaired relaxation filling pattern. E/E prime ratio is between 8 and 15 consistent with indeterminate filling pressures. Right Ventricle Normal right ventricular cavity size and systolic function. Atria Both atria are normal in size. Interatrial shunt cannot be excluded. Aortic Valve The aortic valve was not well visualized. There is no aortic valve stenosis. There is no aortic valve regurgitation. Mitral Valve The mitral valve was not well visualized. There is no mitral valve regurgitation. There is no mitral valve stenosis. Pulmonic Valve The pulmonic valve was not well visualized. Tricuspid Valve The tricuspid valve was not well visualized. There is trace tricuspid valve regurgitation. The right ventricular systolic pressure is normal. The right ventricular systolic pressure is 18 mmHg. Normal right atrial pressure. There is no evidence of pulmonary hypertension. Great Vessels The aorta was not well visualized. The pulmonary artery was not well visualized. There is no dilatation of the ascending aorta measuring 3.40 cm. Venous The inferior vena cava is normal in size and collapses greater than 50% with inspiration. Pericardium/Pleural There is no evidence of pericardial effusion. Prior Study Comparison No significant change compared to prior study dated: 06/12/2022. Measurements 2D Linear Measurements IVSd: 0.92 0.6-0.9/0.6-1.0 cm LVIDd: 3.24 3.9-5.3/4.2-5.9 cm LVIDd Index: 1.66 2.4-3.2/2.2-3.1 cm/m2 LVIDs: 2.13 2.0-3.6 cm LVPWd: 0.99 0.7-1.1 cm Ao Root: 3.00 2.1-3.5 cm LA Diam: 2.90 2.7-3.8/3.0-4.0 cm LAIDs Index: 1.49 1.5-2.3 cm/m2 LV Mass: 106.52 67-162/88-224 g LV Mass Index: 54.62 43-95/49-115 g/m2 LVOT Diam: 2.20 3.0+(-)1.3 cm Mitral Valve MV Pk E: 0.67 MV PK A: 0.81 MV Decel Time: 264.00 E/A: 0.80 E'Lateral: 5.66 E'Medial: 6.42 E/E' Med: 10.40 E/E' Lat: 11.80 PHT: 77.00 MVA PHT: 2.86 Decel [place]: 2.53 Aortic Valve AoV Pk George: 0.84 AoV Mn George: 0.57 AoV VTI: 0.25 AoV Pk Grad: 3.00 Aov Mn Grad: 2.00 MAUREEN Cont.VTI: 2.56 LVOT LVOT Pk George: 0.64 LVOT Mn George: 0.39 LVOT VTI: 0.17 LVOT Pk Grad: 2.00 LVOT Mn Grad: 1.00 LVOT Diam: 2.20 LVOT Area: 3.80 Diastolic Function MV Pk E: 0.67 MV Pk A: 0.81 E/A: 0.80 E'Medial: 6.42 E/E' Med: 10.40 E' Laterial: 5.66 E/E' Lat: 11.80 Right Ventricle TAPSE (mm): 31.00 TVS' George: 10.00 Tricuspid Valve TR Pk George: 1.93 TR Pk Grad: 15.00 RA Press: 3.00 RVSP: 18.00 Great Vessels Aorta Ao Root-2D: 3.00 2.0-3.7 cm Ao Asc: 3.40 2.1-3.4 cm Pulmonary Valve PV Pk George: 0.88 Peak PV Grad: 3.00 Updated in Other Vendor System with Status of Final Barney Viramontes MD electronically signed on 08/20/2024 8:51:48 AM with status of Final
== END ==
LOC: HO.CARD 12:53
PROVIDERS: PCP Pediatrics; Visit Provider Internal Medicine
DX: R60.0 Localized edema (principal)
CPT/HCPCS: 93306; Q9957

== ENCOUNTER → 2024-08-19 13:02 | Outpatient (BNV) | payer MEDICARE, MEDICAID, SELFPAY | PROVIDERS: PCP Pediatrics; Visit Provider Internal Medicine Cardiovascular Disease | DX: I51.89 Other ill-defined heart diseases (principal); R93.1 Abnormal findings on diagnostic imaging of heart and coronary circulation | CPT/HCPCS: 93306 ==

== ENCOUNTER 2025-08-07 11:29 | Outpatient (AMB) | payer MEDICARE, MEDICAID, SELFPAY ==
--- NOTE | 2025-08-07 11:29 | MHC.OFFVIS ---
Intake Visit Reasons: medication follow up Intake Note: Patient presents today for medication follow up Urology Meds:Tamsulosin Allergies to Antibiotic:No Known Allergies Blood Thinner:Eliquis Child Adolescent Care Required: No Accompanied by: Self / Same As Patient Allergies No Known Allergies Allergy (Verified 08/07/25 11:29) Medication List - Last Reconciled 08/09/25 by Marcial Tyler MD albuterol sulfate 90 mcg/actuation 2 puffs PO QID PRN apixaban (Eliquis) 5 mg PO BID 1 day cholecalciferol (vitamin D3) 1 tab PO DAILY digoxin 125 mcg PO DAILY 1 day finasteride (Proscar) 5 mg PO DAILY 90 days fluticasone propionate 220 mcg/actuation (Flovent HFA) 1 puff PO BID methimazole 20 mg (2 x 10 mg) PO TID 1 day naproxen 1 tab PO BID PRN omeprazole 1 cap PO BID pantoprazole 40 mg PO DAILY propranolol ER 60 mg PO DAILY tamsulosin 1 cap PO DAILY tramadol 2 tabs PO TID HPI Comments Details: 08/06/25 History of Present Illness The patient is an 80-year-old male presenting with the need for medication management for Benign Prostatic Hyperplasia and elevated PSA. The patient has been on finasteride and tamsulosin for the management of Benign Prostatic Hyperplasia. He reports urinary symptoms, which are being managed with these medications. The patient requires a refill of his medications, which will be sent to the pharmacy for his convenience. Results: 01/11/24--9.54 ng/mL Plan 1. Benign Prostatic Hyperplasia/Elevated PSA - Continue current medications: finasteride and tamsulosin. - Refill prescriptions to be sent to the pharmacy. FU PSA Kei is an 78-year-old male presents for telehealth visit, for elevated PSA. The patient was seen by his primary for routine checkup and complained of about 15 lb weight loss. He is on tamsulosin for BPH, denies dysuria or gross hematuria. Former smoker. He states he has a sister who is 85 and doing okay. He does not remember any specific cancers in his family. He is on Eliquis. Review of blood work 01/11/2024 PSA 9.54 and 01/11/2024 at another lab PSA 14.1 I have discussed risks and benefits of prostate biopsy as he is on the Eliquis. Risks to include but not limited to pain, bleeding, blood in the urine and semen, septicemia, need to repeat biopsy. I want to hold on biopsy for now and start finasteride 5 mg daily. I will check an ultrasound of the urinary tract and repeat PSA in 8-10 weeks. [facility] Medical History GERD (gastroesophageal reflux disease) COPD (chronic obstructive pulmonary disease) Social History Household Members: None Housing: Apartment Do you presently have visiting nurse or other home services: No Alcohol intake: former Patient Tobacco Use Status: Former Tobacco user Substance Use Type: Marijuana service: No Current occupational status: retired Review of Systems Const All systems reviewed & are unremarkable except as noted in HPI and below Reports no additional complaints Eyes Reports no additional complaints ENT Reports no additional complaints Card Reports no additional complaints Resp Reports no additional complaints GI Reports no additional complaints Reports as per HPI Musc Reports no additional complaints Skin/Breast Reports system reviewed and no additional complaints, except as documented Neuro Reports no additional complaints Psych Reports no additional complaints Endo Reports no additional complaints Osvaldo/Lymph Reports no additional complaints Aller/Immun Reports no additional complaints Telehealth Telehealth Telehealth Platform: Telephone Location of provider rendering services: practice address Location of patient: address on file Patient Identification confirmed using: Name, : Yes Telehealth method: voice only Patient verbally consented to treatment: Yes Patient verbally consented to billing insurance company: Yes Patient informed of any privacy concerns related to visit: Yes Minutes spent on Phone/Video with Pt.: 13 Assessment & Plan Assessment & Plan (1) Elevated PSA: Code(s): R97.20 - Elevated prostate specific antigen [PSA] Category: Medical (2) BPH loc w urin obs/LUTS: Code(s): N40.1 - Benign prostatic hyperplasia with lower urinary tract symptoms Category: Medical Plan Plan 1. Benign Prostatic Hyperplasia/Elevated PSA - Continue current medications: finasteride and tamsulosin. - Refill prescriptions to be sent to the pharmacy. FU PSA. Orders: Orders PSA,Total (Free>4and<10) Today R97.20 - Elevated prostate specific antigen [PSA] Medications: Changed From tamsulosin 1 cap PO DAILY N40.1 - Benign prostatic hyperplasia with lower urinary tract symptoms To tamsulosin 0.4 mg PO DAILY 90 caps 3RF N40.1 - Benign prostatic hyperplasia with lower urinary tract symptoms Refilled finasteride (Proscar) 5 mg PO DAILY 90 tabs 3RF 90 days N40.1 - Benign prostatic hyperplasia with lower urinary tract symptoms, R97.20 - Elevated prostate specific antigen [PSA] Patient Instructions: The patient had an opportunity to ask questions regarding treatment plan. The patient expressed understanding and agreement with the above treatment plan. The patient is aware they should contact our office by phone for worsening of their current condition or the appearance of new symptoms. Compliance is encouraged with any medications and followup testing that is ordered. It is a privilege to be allowed the opportunity to participate in the urologic care of your patient. If you have any questions or concerns regarding treatment for the above conditions please do not hesitate to contact me. The office telephone contact is [phone]. This note is constructed in part using voice recognition software. While every effort has been made to ensure accuracy nurse emergency room errors may have been included. Yours sincerely, Marcial Tyler MD Scribe Plan - Not visible on output: Patient was informed and verbally consented to the use of an ambient scribe for clinic note documentation during this visit. Coding Level of Care Code Tele Est Pt Level 3 (02648) Complex EM visit Add On G2211 Diagnoses Elevated PSA R97.20 BPH loc w urin obs/LUTS N40.1
--- OUTSIDE RECORDS SUMMARY | 2025-08-07 13:24 | XMS_ITS | Clinical Summary ---
Author Organization [employer] Address [address] [facility] 7t [place] [address] Care Team Providers Care Entry Level Programmer Name Role Phone Madison Escobar MD Primary Care Provider [phone] Allergies No known active allergies Medications naloxone (Narcan) 4 mg/0.1 mL nasal spray spray 0.1 milliliter by intranasal route in 1 nostril may repeat dose every 2-3 minutes as needed alternating nostrils with each dose 02/18/20 19 Active naproxen (Naprosyn) 500 MG tablet TAKE ONE TABLET BY MOUTH TWICE DAILY NEEDED FOR PAIN 05/22/20 22 Active Fleet Bisacodyl 10 MG/30ML enemaIndication s:Drug-induced constipation insert into rectum ONCE DIRECTED 37 mL 3 06/05/20 24 Active pantoprazole (ProtoNix) 40 MG EC tablet TAKE ONE TABLET EVERY MORNING BEFORE BREAKFAST. DO NOT BREAK, CRUSH, DISSOLVE OR CHEW 30 tablet 11 07/23/20 24 Active polyethylene glycol, PEG, 3350 (Glycolax, Miralax) powder Mix 1 full cap in 4 ozs of fluids and drink daily 1 g 11 12/18/19 25 Active docusate sodium (Colace) 100 MG capsuleIndicati ons:Primary hypertension,Vi tamin D deficiency TAKE ONE CAPSULE IN THE MORNING AND EVENING 180 capsule 3 12/19/19 25 Active propranolol LA (Inderal LA) 60 MG 24 hr capsuleIndicati ons:Primary hypertension,Vi tamin D deficiency TAKE ONE CAPSULE EVERY MORNING 90 capsule 3 01/15/20 25 Active cholecalciferol (Vitamin D-3) 25 MCG tabletIndicatio ns:Primary hypertension,Vi tamin D deficiency TAKE ONE TABLET EVERY MORNING 90 tablet 3 01/15/20 25 Active tamsulosin (Flomax) 0.4 MG 24 hr capsuleIndicati ons:Benign prostatic hyperplasia with urinary frequency TAKE ONE CAPSULE BY MOUTH EVERY EVENING 30 capsule 02/04/20 Active Asmanex, 60 Metered Doses, 220 MCG/ACT aerosol powder INHALE ONE PUFF TWICE DAILY, RINSE MOUTH AFTER USE 1 each 03/31/20 Active Ventolin HFA 108 (90 Base) MCG/ACT inhaler INHALE TWO PUFFS EVERY 6 HOURS NEEDED FOR WHEEZING 18 g 03/31/20 Active triamcinolone (Kenalog) 0.1 % creamIndication s:Rash APPLY A THIN LAYER TO THE AFFECTED AREA(s) TWICE DAILY 45 g 3 06/03/20 Active fluticasone furoate (Arnuity Ellipta) 100 MCG/ACT inhaler Inhale 1 puff Once per day. Rinse mouth with water after use to reduce aftertaste and incidence of candidiasis. Do not swallow. 1 each 06/10/20 25 2025 Active digoxin (Lanoxin) 125 MCG tablet TAKE ONE TABLET EVERY MORNING 30 tablet 1 07/20/20 25 Active Eliquis 5 MG tablet TAKE ONE TABLET IN THE MORNING AND EVENING 60 tablet 07/20/20 25 Active traMADol (Ultram) 50 MG tabletIndicatio ns:Chronic pain syndrome Take 2 tablets (100 mg) by mouth every 8 (eight) hours if needed for severe pain. 168 tablet 07/27/20 25 Active digoxin (Lanoxin) 125 MCG tablet TAKE ONE TABLET EVERY MORNING 30 tablet 1 05/18/20 25 2024 Discontinued Eliquis 5 MG tablet TAKE ONE TABLET IN THE MORNING AND EVENING 60 tablet 05/18/20 25 2024 Discontinued traMADol (Ultram) 50 MG tabletIndicatio ns:Chronic pain syndrome Take 2 tablets (100 mg) by mouth every 8 (eight) hours if needed for severe pain. 168 tablet 06/22/20 25 2024 Discontinued(R eorder (will not trigger notification to Pharmacy)) Active Problems Problem Noted Date Diagnosed Date Constipation 12/18/2024 Peptic ulcer 06/14/2022 Thyrotoxicosis, acute 06/14/2022 Chronic pain syndrome 04/11/2018 Gastroesophageal reflux disease 04/13/2017 Benign prostatic hyperplasia without urinary obs truction 05/01/2012 Alcohol dependence 05/01/2012 Backache 05/01/2012 Chronic obstructive lung disease 05/01/2012 Encounters Date Type Department Care Team Description 07/27/2025 Refill [facility] CH[facility] MED & PEDS [address] [place] [address] Rashmi Santana, field project manager pain syndrome 07/27/2025 Telephone [facility] MED & PEDS [address] [place] [address] Madison Escobar MD 07/19/2025 Refill [facility] CHC MED & PEDS [address] [place] [address] Madison Escobar MD 06/22/2025 Refill [facility] CH[facility] MED & PEDS [address] [place] [address] Rashmi Santana RN Chronic pain syndrome 06/22/2025 Telephone [facility] MED & PEDS [address] [place] [address] Madison Escobar MD 06/09/2025 Refill [facility] CHC MED & PEDS [address] [place] [address] Madison Escobar MD 06/03/2025 Refill [facility] CH[facility] MED & PEDS [address] [place] [address] Madison Escobar MD Rash 05/27/2025 Refill [facility] CH[facility] MED & PEDS [address] [place] [address] Rashmi Santana RN Rash; Chronic pain syndrome 05/27/2025 Telephone [facility] MED & PEDS [address] [place] [address] Madison Escobar MD 05/16/2025 Refill [facility] CHC MED & PEDS [address] [place] [address] Madison Escobar MD from Last 3 Months Immunizations Immunization Administration Dates Next Due Influenza High-dose Quadriva lent Preservative Free 08/11/2021,08/26/2020 Influenza injectable quadriv alent IIV4 with preservative 08/29/2018,08/28/2016 Influenza injectable quadriv alent preservative free 01/11/2024,08/29/2017,08/31/2015,07/11 Influenza, High Dose Seasona l, Preservative Free 08/05/2024,08/11/2019 Influenza, IIV3, injectable 09/02/2014 Influenza, Split (incl. dana fied surface antigen) 07/28/2013,07/31/2012 Influenza, Unspecified 09/16/2003 Moderna Covid-19 Vaccine 6+ Bivalent 10/07/2022 Pfizer Covid-19 Vaccine 12+ 02/21/2021, Pneumococcal Conjugate PCV 13 12/16/2007 Pneumococcal Polysaccharide PPSV23 08/31/2015 Zoster, live 03/12/2013 Social History Tobacco Use Types Packs/Day Years Used Date Smoking Tobacco: Former Cigarettes Passive Smoke Exposure: Past Smokeless Tobacco: Never Tobacco Cessation:Counseling Given: Not Answered Alcohol Use Standard Drinks/Week Comments Not Currently 0 (1 standard drink = 0.6 oz pur e alcohol) Depression Answer Date Recorded Patient Health Questionnaire-9 Score 4 05/23/2023 Housing Stability Answer Date Recorded What is your housing situation today? I have maico kowalski 06/18/[address] you li ve. Do you have problems with any of the following? None of the above 06/18/2024 Food Insecurity Answer Date Recorded Within the past 12 months, y ou worried that your food would run out before you got money to buy more: Never True 06/18/2024 Within the past 12 months,th e food you bought just didn't last and you didn't have enough money to get more: Never True 05/2024 Transportation Answer Date Recorded In the past 12 months, has l ack of transportation kept you from medical appts, meetings, work or from getting things needed for daily living? No 06/18/2024 Utilities Answer Date Recorded In the past 12 months, has t he electric, gas, oil or water company threatened to shut off services in your home? No 06/18/2024 Depression Answer Date Recorded Patient Health Questionnaire-2 Score 2 05/23/2023 Internet Access Answer Date Recorded Internet Access Q1 Yes 07/14/2024 Internet Access Q2 Not on file 07/14/2024 Sex and Gender Information Value Date Recorded Sex Assigned at Male 09/11/2022 10:19 AM EDT Legal Sex Male 10:19 AM EDT Gender Identity Male 09/11/2022 10:19 AM EDT Sexual Orientation Straight 09/11/2022 10 :19 AM EDT Last Filed Vital Signs Vital Sign Reading Time Taken Comments Blood Pressure 127/71 12/18/2024 11:01 AM EST Pulse 89 12/18/2024 11:01 AM EST Temperature 36.7 C (98.1 F) 12/18/2024 11:01 AM EST Respiratory Rate 14 12/18/2024 11:01 AM EST Oxygen Saturation 98% 12/18/2024 11:01 AM EST Inhaled Oxygen Concentration - - Weight 78.9 kg (174 lb) 12/18/2024 11:01 AM EST Height 177.8 cm (5' 10 ) 12/18/2024 11:01 AM EST Body Mass Index 24.97 12/18/2024 11:01 AM EST Plan of Treatment Upcoming Encounters Date Type Department Care Team (Late st Contact Info) Description 09/24/2025 1:30 PM EST Clinical Support [facility] MED & PEDS [address] [place] [address] Rashmi Santana, RN [address] [place] [address] Health Maintenance Due Date Last Done Comments Alcohol/Substance Use Screening 1957 DTaP/Tdap/Td Vaccines (1 - Tdap) 1962 Zoster Vaccines (2 of 3) 05/07/2013 03/12/2013 RSV Patients and Patients Aged 60 years or older (1 - 1-dose 75+ series) 2018 Depression Screening 05/23/2024 05/23/2023, 05/23/20 23 SDOH Screening 06/18/2025 06/18/2024 COVID-19 Vaccine ( - season) 2025 10/07/2022, 02/21/2021, 01/31/2021 Influenza Vaccine (#1) 2025 , 01/11/2024, 08/11/2021, Additional history exists Tobacco Screening 07/29/2025 07/29/2024 Lipid Panel 08/26/2026 08/26/2021 Pneumococcal Vaccine: 50+ Years Completed 08/31/2015, 12/16/2007 HIB Vaccines Aged Out No longer eligi ble based on patient's age to complete this topic HPV Vaccines Aged Out No longer eligi ble based on patient's age to complete this topic Hepatitis A Vaccines Aged Out No long er eligible based on patient's age to complete this topic Hepatitis B Vaccines Aged Out No long er eligible based on patient's age to complete this topic IPV Vaccines Aged Out No longer eligi ble based on patient's age to complete this topic Meningococcal B Vaccine Aged Out No l onger eligible based on patient's age to complete this topic Meningococcal Vaccine Aged Out No zenaida jennifer eligible based on patient's age to complete this topic RSV under 20 months Aged Out No longe r eligible based on patient's age to complete this topic Rotavirus Vaccines Aged Out No longer eligible based on patient's age to complete this topic Goals Goal Patient Goal Type Associated Problems Recent Progress Patient-Stated? Author Patient will adhere to medication regimen General Improving(09/2023 11:42 AM EDT) No Eric Rasmussen, Nicci Procedures Procedure Name Priority Date/Time Associated Diagnosis Comments LIPID PANEL, STANDARD Routine 08/26/2021 11:05 AM EDT from Last 3 Months or Most Recently Relevant to Health Maintenance Results * (ABNORMAL) LIPID PANEL, STANDARD (08/26/2021 11:05 AM EDT) Chol/HDLC Ratio 3.9 <5.0 (calc) [facility] Cholesterol, Total 179 <200 mg/dL [facility] HDL Cholesterol 46 > OR = 40 mg/dL [facility] LDL Cholesterol 112(H) mg/dL (calc) [facility] Comment: Reference range: <100 Desirable range <100 mg/dL for primary prevention; <70 mg/dL for patients with CHD or diabetic patients with > or = 2 CHD risk factors. LDL-C is now calculated using the Rj calculation, which is a validated novel method providing better accuracy than the Friedewald equation in the estimation of LDL-C. Shadi OBREGON et al. MIRIAM. 2013;310(19): 8857-0808 (http://education.[employer].com/faq/YKS887) Non-HDL Cholesterol 133(H) <130 mg/dL (calc) [facility] Comment: For patients with diabetes plus 1 major ASCVD risk factor, treating to a non-HDL-C goal of <100 mg/dL (LDL-C of <70 mg/dL) is considered a therapeutic option. Triglycerides 105 <150 mg/dL [facility] 08/26/2021 11:0 5 AM EDT us Madison Escobar MD LAB BLOOD ORDERABLES Final Re sult [facility] [address] from Last 3 Months or Most Recently Relevant to Health Maintenance Insurance Advance Directives Documents on File Type Date Recorded Patient Capacitor Inspector Expl anation Advance Directives and Living Will 02/15/2024 2:32 PM Health Care Proxy Care Teams Entry Level Programmer Relationship Specialty Start Date End Date Madison Escobar MD [address] [place] [id number] PCP - General Family Medicine 11/12/18
--- OUTSIDE RECORDS SUMMARY | 2025-08-07 13:24 | XMS_ITS | Encounter Summary ---
Author Organization [employer] Address [address] [facility] [address] [place] [address] Care Team Providers Care Outboard Motors Experimental Mechanic Name Role Phone Madison Escobar MD Primary Care Provider [phone] Encounter Details Date Type Department Care Team (Late st Contact Info) Description 04/25/2022 Abstract [facility] [address] [place], [place] [phone] Madison Escobar MD [address] [place] [address] Social History Tobacco Use Types Packs/Day Years Used Date Smoking Tobacco: Never Assessed Sex and Gender Information Value Date Recorded Sex Assigned at Male 09/11/2022 10:19 AM EDT Legal Sex Male 10:19 AM EDT Gender Identity Male 09/11/2022 10:19 AM EDT Sexual Orientation Straight 09/11/2022 10 :19 AM EDT documented as of this encounter Plan of Treatment Upcoming Encounters Date Type Department Care Team (Late st Contact Info) Description 09/24/2025 1:30 PM EST Clinical Support [facility] CHC MED & PEDS [address] [place] [address] Rashmi Santana, TASIA [address] [place] [address] documented as of this encounter Visit Diagnoses Not on filedocumented in this encounter Care Teams Outboard Motors Experimental Mechanic Relationship Specialty Start Date End Date Madison Escobar MD [address] [place] [address] PCP - General Family Medicine 11/12/18 documented as of this encounter
--- OUTSIDE RECORDS SUMMARY | 2025-08-07 13:24 | XMS_ITS | Encounter Summary ---
Author Organization [employer] Address [address] [facility] [address] [place] [address] Care Team Providers Care Laborer Shaft Sinking Name Role Phone Madison Escobar MD Primary Care Provider [phone] Reason for Visit * Reason Comments Med Refill Encounter Details Date Type Department Care Team ([facility] Contact Info) Description 12/29/2022 Refill [facility] MED & PEDS [address] [place] [address] Madison Escobar MD [address] [place], [place] [phone] Social History Tobacco Use Types Packs/Day Years Used Date Smoking Tobacco: Never Assessed Sex and Gender Information Value Date Recorded Sex Assigned at Male 09/11/2022 10:19 AM EDT Legal Sex Male 10:19 AM EDT Gender Identity Male 09/11/2022 10:19 AM EDT Sexual Orientation Straight 09/11/2022 10 :19 AM EDT COVID-19 Exposure Response Date Recorded In the last 10 days, have yo u been in contact with someone who was confirmed or suspected to have Coronavirus/COVID-19? No / Unsure 12/29/2022 10:39 AM EST documented as of this encounter Plan of Treatment Upcoming Encounters Date Type Department Care Team (Late st Contact Info) Description 09/24/2025 1:30 PM EST Clinical Support [facility] MED & PEDS [address] [place] [address] Rashmi Santana, TASIA [address] [place], [place] [phone] documented as of this encounter Goals Goal Patient Goal Type Associated Problems Recent Progress Patient-Stated? Author Patient will adhere to medication regimen General Improving(09/2023 11:42 AM EDT) No Eric Rasmussen, PharmD documented as of this encounter Visit Diagnoses Not on filedocumented in this encounter Care Teams Laborer Shaft Sinking Relationship Specialty Start Date End Date Madison Escobar MD [address] [place] [id number] PCP - General Family Medicine 11/12/18 documented as of this encounter
--- OUTSIDE RECORDS SUMMARY | 2025-08-07 13:25 | XMS_ITS | Encounter Summary ---
Author Organization [employer] Address [address] [facility] [address] [place] [address] Care Team Providers Care Veterans Adviser Name Role Phone Madison Escobar MD Primary Care Provider [phone] Reason for Visit * Reason Comments Med Refill Encounter Details Date Type Department Care Team ([facility] Contact Info) Description 08/14/2023 Refill [facility] MED & PEDS [address] [place], [place] [phone] Madison Escobar MD [address] [place], [place] [phone] Rash; Chronic pain syndrome Social History Tobacco Use Types Packs/Day Years Used Date Smoking Tobacco: Never Assessed Alcohol Use Standard Drinks/Week Comments Not Currently 0 (1 standard drink = 0.6 oz pur e alcohol) Depression Answer Date Recorded Patient Health Questionnaire-9 Score 4 05/23/2023 Depression Answer Date Recorded Patient Health Questionnaire-2 Score 2 05/23/2023 Sex and Gender Information Value Date Recorded Sex Assigned at Male 09/11/2022 10:19 AM EDT Legal Sex Male 10:19 AM EDT Gender Identity Male 09/11/2022 10:19 AM EDT Sexual Orientation Straight 09/11/2022 10 :19 AM EDT documented as of this encounter Plan of Treatment Upcoming Encounters Date Type Department Care Team (Late Contact Info) Description 09/24/2025 1:30 PM EST Clinical Support [facility] MED & PEDS [address] [place], [place] [phone] Rashmi Santana, TASIA [address] [place], [place] [phone] documented as of this encounter Goals Goal Patient Goal Type Associated Problems Recent Progress Patient-Stated? Author Patient will adhere to medication regimen General Improving(09/2023 11:42 AM EDT) No Eric Rasmussen, MansoorD documented as of this encounter Visit Diagnoses Diagnosis Rash Rash and other nonspecific skin eruption Chronic pain syndrome documented in this encounter Additional Health Concerns Assessment Noted Time PHQ-9 Depression Total Score: 4 05/23/20 23 10:24 AM EDT documented as of this encounter Care Teams Veterans Adviser Relationship Specialty Start Date End Date Madison Escobar MD [address] [place] [id number] PCP - General Family Medicine 11/12/18 documented as of this encounter
--- OUTSIDE RECORDS SUMMARY | 2025-08-07 13:25 | XMS_ITS | Encounter Summary ---
Author Organization [employer] Address [address] [facility] [address] [place] [address] Care Team Providers Care Brick Offbearer Name Role Phone Madison Escobar MD Primary Care Provider [phone] Reason for Visit * Reason Onset Date Comments Medication Question 12/27/2023 Encounter Details Date Type Department Care Team (Late st Contact Info) Description 12/27/2023 Telephone [facility] MEDICINE [address] [place], [place] [phone] Madison Escobar MD [address] [place], [place] [phone] Medication Question Social History Tobacco Use Types Packs/Day Years Used Date Smoking Tobacco: Never Assessed Alcohol Use Standard Drinks/Week Comments Not Currently 0 (1 standard drink = 0.6 oz pur e alcohol) Depression Answer Date Recorded Patient Health Questionnaire-9 Score 4 05/23/2023 Housing Stability Answer Date Recorded What is your housing situation today? I have maicomichelle kowalski 09/03/[address] you li ve. Do you have problems with any of the following? None of the above 09/03/2023 Food Insecurity Answer Date Recorded Within the past 12 months, y ou worried that your food would run out before you got money to buy more: Never True 09/03/2023 Within the past 12 months,th e food you bought just didn't last and you didn't have enough money to get more: Never True Transportation Answer Date Recorded In the past 12 months, has l ack of transportation kept you from medical appts, meetings, work or from getting things needed for daily living? No 09/03/2023 Utilities Answer Date Recorded In the past 12 months, has t he electric, gas, oil or water company threatened to shut off services in your home? No 09/03/2023 Depression Answer Date Recorded Patient Health Questionnaire-2 Score 2 05/23/2023 Sex and Gender Information Value Date Recorded Sex Assigned at Male 09/11/2022 10:19 AM EDT Legal Sex Male 10:19 AM EDT Gender Identity Male 09/11/2022 10:19 AM EDT Sexual Orientation Straight 09/11/2022 10 :19 AM EDT documented as of this encounter Miscellaneous Notes * Telephone Encounter - Whit Mohamud RN - 12/27/2023 12:32 PM EST Noted, thank you * Telephone Encounter - Dev Musa - 12/27/2023 10:00 AM EST Tc from [facility] working with Medicare requesting a alternative to fluticasone (Flovent HFA) 220 MCG/ACT inhaler. If any questions you can contact [facility] at [phone] Ext [phone]. documented in this encounter Plan of Treatment Upcoming Encounters Date Type Department Care Team (Late st Contact Info) Description 09/24/2025 1:30 PM EST Clinical Support [facility] CHC MED & PEDS [address] [place] [address] Rashmi Santana RN [address] [place] [address] documented as of this encounter Goals Goal Patient Goal Type Associated Problems Recent Progress Patient-Stated? Author Patient will adhere to medication regimen General Improving(09/2023 11:42 AM EDT) No TonylogEric corado, PharmD documented as of this encounter Visit Diagnoses Not on filedocumented in this encounter Additional Health Concerns Assessment Noted Time PHQ-9 Depression Total Score: 4 05/23/20 23 10:24 AM EDT documented as of this encounter Care Teams Brick Offbearer Relationship Specialty Start Date End Date Madison Escobar MD [address] [place] [address] PCP - General Family Medicine 11/12/18 documented as of this encounter
--- OUTSIDE RECORDS SUMMARY | 2025-08-07 13:25 | XMS_ITS ---
Author Name [facility] Organization Unknown Encounters Encounter Type Encounter Reason Primary Diagnosis Location Date Inpatient Thyrotoxicosis, unspecified without thyrotoxic crisis or storm [employer] Information 06/14/2022 Care Team Organization Name Specialty Phone Email Start Date End Da te [employer] Information 06/15/2022 [employer] Information 06/14/2022 06/14/2022
--- OUTSIDE RECORDS SUMMARY | 2025-08-07 13:25 | XMS_ITS | Clinical Summary ---
Author Organization [facility] Address [address] [place] [address] Care Team Providers Care Interior Decorator Name Role Phone Unavailable Primary Care Provider Unavailabl e Allergies No known active allergies Medications albuterol (PROVENTIL HFA; VENTOLIN HFA) 108 (90 Base) MCG/ACT inhalerIndicati ons:Thyrotoxico sis, acute Inhale 2 puffs 4 times daily (every 6 hours) as needed for wheezing or shortness of breath. 1 each 2 Active apixaban (ELIQUIS) 5 MG tabletIndicatio ns:Thyrotoxicos is, acute Take 1 tablet (5 mg total) by mouth every 12 (twelve) hours around the clock. 60 tablet 2 Active cholecalciferol (CHOLECALCIFERO L) 25 MCG (1000 UT) tabletIndicatio ns:Thyrotoxicos is, acute Take 1 tablet (1,000 Units total) by mouth daily. Do not start before June 19, 2022. 30 tablet 2 Active digoxin (LANOXIN) 0.125 mg tabletIndicatio ns:Thyrotoxicos is, acute Take 1 tablet (0.125 mg total) by mouth daily. Do not start before June 19, 2022. 30 tablet 2 Active docusate sodium (COLACE) 100 MG capsuleIndicati ons:Thyrotoxico sis, acute Take 1 capsule (100 mg total) by mouth 2 (two) times a day. 60 capsule 2 Active methimazole (TAPAZOLE) 10 MG tabletIndicatio ns:Thyrotoxicos is, acute Take 2 tablets (20 mg total) by mouth 2 (two) times a day. 120 tablet 2 Active PANTOprazole (PROTONIX) 40 MG EC tabletIndicatio ns:Thyrotoxicos is, acute Take 1 tablet (40 mg total) by mouth daily. Do not start before June 19, 2022. 30 tablet 2 Active propranolol (INDERAL) 60 MG tabletIndicatio ns:Thyrotoxicos is, acute Take 1 tablet (60 mg total) by mouth every 8 (eight) hours around the clock. 90 tablet 2 Active tamsulosin (FLOMAX) 0.4 MG capsuleIndicati ons:Thyrotoxico sis, acute Take 1 capsule (0.4 mg total) by mouth every evening after dinner. 30 capsule 2 Active traMADol (ULTRAM) 50 MG tabletIndicatio ns:Thyrotoxicos is, acute Take 1 tablet (50 mg total) by mouth 4 times daily (every 6 hours) as needed for severe pain. 0 2 Active fluticasone (FloVENT DISKUS) 50 MCG/BLIST diskus inhalerIndicati ons:Thyrotoxico sis, acute Inhale 1 puff 2 (two) times a day. 2 Active cholestyramine resin (QUESTRAN) 4 g packetIndicatio ns:Thyrotoxicos is, acute Take 1 packet (4 g total) by mouth 4 (four) times a day. Add to liquid and stir until completely mixed. 120 packet 2 Active Active Problems Problem Noted Date Diagnosed Date Thyrotoxicosis, acute 06/14/2022 Peptic ulcer 06/14/2022 Social History Tobacco Use Types Packs/Day Years Used Date Smoking Tobacco: Never Assessed AUDIT-C Answer Date Recorded Q1: How often do you have a drink containing alcohol? Never 06/14/2022 Q2: How many drinks containi ng alcohol do you have on a typical day when you are drinking? Patient does not drink Q3: How often do you have si x or more drinks on one occasion? Never 06/14/2022 Sex and Gender Information Value Date Recorded Sex Assigned at Not on file Legal Sex Male 6:32 PM EST Gender Identity Not on file Sexual Orientation Not on file Last Filed Vital Signs Vital Sign Reading Time Taken Comments Blood Pressure 102/62 06/18/2022 9:34 AM EDT Pulse 88 06/18/2022 8:13 AM EDT Temperature 36.9 C (98.4 F) 06/18/2022 6:30 AM EDT Respiratory Rate 16 06/18/2022 6:30 AM EDT Oxygen Saturation 100% 06/18/2022 6:30 AM EDT Inhaled Oxygen Concentration - - Weight 76.7 kg (169 lb 3.2 oz) 06/16/2022 12:44 PM EDT Height 177.8 cm (5' 10 ) 06/14/2022 10:00 PM EDT Body Mass Index 24.28 06/14/2022 10:00 PM EDT Plan of Treatment Health Maintenance Due Date Last Done Comments Advance Care Planning 1945 DTaP/Tdap/Td Vaccines (1 - Tdap) 1962 Pneumococcal Vaccines 50+ (1 of 1 - PCV) 1993 Zoster (Shingles) Vaccine (1 of 2) 1993 RSV Vaccine 60 years and old er and Patients (1 - 1-dose 75+ series) 2018 Influenza Vaccine 06/12/2025 COVID-19 Vaccine ( - 2023-2 5 season) 2025 Hepatitis B Vaccines Aged Out No long er eligible based on patient's age to complete this topic Insurance [facility] MEDICARE Advance Directives * Full Code (Latest Code Status on File) Date Activated Date Inactivated Comments 06/14/2022 10:08 PM
== END 2025-08-07 16:44 | disposition home or self-care (01) ==
LOC: HO.HUSH 11:29
PROVIDERS: PCP Pediatrics; Visit Provider Urology
DX: R97.20 Elevated prostate specific antigen [PSA] (principal); N40.1 Benign prostatic hyperplasia with lower urinary tract symptoms
CPT/HCPCS: 99213; G2211